=== PATIENT | male | born 1945 | race Caucasian/White ===

== ENCOUNTER 2016-11-01 16:11 | Emergency (ER) | payer OTHER ==
--- NOTE | 2016-11-01 16:16 | ER Document Report ---
ED Medical Screen (RME) - General Stated Complaint: LEFT FLANK/LOWER BACK PAIN Mode of Arrival: Ambulatory Information source: Patient Notes: She presents to the emergency department with right sided flank pain that started 2:00 this morning. Reports trouble voiding, feels constipated. Vomited multiple times after taking tylenol . History of kidney stones. I have greeted and performed a rapid initial assessment of this patient. A comprehensive ED assessment and evaluation of the patient, analysis of test results and completion of the medical decision making process will be conducted by additional ED providers. TRAVEL OUTSIDE OF THE [place] IN LAST 30 DAYS: No - Related Data Allergies/Adverse Reactions: No Known Allergies Allergy (Verified 08/29/15 07:12) Past Medical History GI Medical History: Reports: Hx Crohn's Disease Psychiatric Medical History: Denies: Hx Depression Past Surgical History: Reports: Hx Bowel Surgery - Perf. Bowel - Immunizations Hx Diphtheria, Pertussis, Tetanus Vaccination: Yes
[2016-11-01] MEDS ORDERED: OXYCODONE-ACETAMINOPHEN 5-325 MG TABLET PO ONE (16:57)
[2016-11-01] MEDS ORDERED: ONDANSETRON 4 MG TAB.RAPDIS PO ONE (16:57)
[2016-11-01] MEDS ORDERED: IBUPROFEN 600 MG TABLET PO ONE (16:57)
[2016-11-01] MEDS ORDERED: ONDANSETRON HCL INJ/PF 4 MG/2 ML SDV IV ONE (17:03)
[2016-11-01] MEDS ORDERED: KETOROLAC TROMETHAMINE INJ/PF 30 MG/1 ML SDV IV ONE (17:03)
[2016-11-01] MEDS ORDERED: MORPHINE SULFATE 10 MG/ML INJ IV ONE (17:03)
[2016-11-01 17:04] LABS: HEMATOCRIT 49.3 % (37.9-51.0); HEMOGLOBIN 16.5 g/dL (13.5-17.0); HGB HCT DIFFERENCE 0.2; MEAN CORPUSCULAR HGB CONC 33.5 g/dL (32.0-36.0); MEAN CORPUSCULAR VOLUME 87 fl (80-97); RED BLOOD COUNT 5.69 10^6/uL (4.35-5.55); RED CELL DISTRIBUTION WIDTH 13.6 % (11.5-14.0); WHITE BLOOD COUNT 17.3 10^3/uL (4.0-10.5)
--- NOTE | 2016-11-01 17:16 | ER Document Report ---
ED GI/ - General Chief Complaint: Flank Pain Stated Complaint: LEFT FLANK/LOWER BACK PAIN Mode of Arrival: Ambulatory Notes: The patient is a 71-year-old male, past medical history frequent kidney stones, presents with 10 hours of left flank pain radiating to his groin, exactly similar to his prior kidney stones. He said usually his stones pass in about 6 hours, but this is taking longer than normal. He has never required any urologic intervention. He is also having some nausea and vomiting. He denies hematuria, dysuria, diarrhea, constipation, hematemesis, chest pain, shortness of breath, numbness or tingling. TRAVEL OUTSIDE OF THE [place] IN LAST 30 DAYS: No - Related Data Allergies/Adverse Reactions: typhoid vaccine Allergy (Verified 11/01/16 16:19) Past Medical History - General Information source: Patient - Social History Smoking Status: Current Every Day Smoker Chew tobacco use (# tins/day): No Frequency of alcohol use: None Drug Abuse: None Family History: Other - Father, Grand father- Cerebral Aneurysm Patient has suicidal ideation: No Patient has homicidal ideation: No Renal/ Medical History: Denies: Hx Peritoneal Dialysis GI Medical History: Reports: Hx Crohn's Disease Psychiatric Medical History: Denies: Hx Depression Past Surgical History: Reports: Hx Bowel Surgery - Perf. Bowel - Immunizations Hx Diphtheria, Pertussis, Tetanus Vaccination: Yes Review of Systems - Review of Systems Notes: REVIEW OF SYSTEMS: CONSTITUTIONAL: -fevers, -chills EENT: -eye pain, -difficulty swallowing, -nasal congestion CARDIOVASCULAR: -chest pain, -syncope. RESPIRATORY: -cough, -SOB GASTROINTESTINAL: +abdominal pain, +nausea, +vomiting, -diarrhea GENITOURINARY: -dysuria, -hematuria MUSCULOSKELETAL: +left flank pain, -neck pain SKIN: -rash or skin lesions. HEMATOLOGIC: -easy bruising or bleeding. LYMPHATIC: -swollen, enlarged glands. NEUROLOGICAL: -altered mental status or loss of consciousness, -headache, - neurologic symptoms PSYCHIATRIC: -anxiety, -depression. ALL OTHER SYSTEMS REVIEWED AND NEGATIVE. Physical Exam - Vital signs Vitals: Temp Pulse Resp BP Pulse Ox 98.0 F 102 H 19 136/101 H 97 11/01/16 16:15 11/01/16 16:15 11/01/16 16:15 11/01/16 16:15 11/01/16 16:15 - Notes Notes: PHYSICAL EXAMINATION: GENERAL: Well-appearing, well-nourished and in mild acute distress. HEAD: Atraumatic, normocephalic. EYES: Pupils equal round and reactive to light, extraocular movements intact, sclera anicteric, conjunctiva are normal. ENT: nares patent, oropharynx clear without exudates. Moist mucous membranes. NECK: Normal range of motion, supple without lymphadenopathy LUNGS: Breath sounds clear to auscultation bilaterally and equal. No wheezes rales or rhonchi. HEART: Regular rate and rhythm without murmurs ABDOMEN: Soft, nontender, normoactive bowel sounds. No guarding, no rebound. No masses appreciated. EXTREMITIES: Normal range of motion, no pitting or edema. No cyanosis. NEUROLOGICAL: Cranial nerves grossly intact. Normal speech, normal gait. Normal sensory, motor, and reflex exams. PSYCH: Normal mood, normal affect. SKIN: Warm, Dry, normal turgor, no rashes or lesions noted. Course - Re-evaluation Re-evalutation: Patient feeling much better. CT scan shows evidence of a recently passed stone with moderate hydronephrosis. 3 mm stone in bladder. Patient with leukocytosis , but no evidence of urinary tract infection and abdomen is completely nontender. He says that he has had leukocytosis in the past without an infection. Patient is tolerating fluids by mouth. We will discharge home with follow-up at urologist as an outpatient. Instructed patient to drink plenty of water earlier next few days to help with his slight MANNIE. - Vital Signs Vital signs: Temp Pulse Resp BP Pulse Ox 98.0 F 102 H 19 136/101 H 97 11/01/16 16:15 11/01/16 16:15 11/01/16 16:15 11/01/16 16:15 11/01/16 16:15 - Laboratory Result Diagrams: 11/01/16 16:35 11/01/16 16:35 Laboratory results interpreted by me: 11/01/16 11/01/16 11/01/16 16:35 16:35 16:35 WBC 17.3 H RBC 5.69 H Seg Neuts % (Manual) 84 H Lymphocytes % (Manual) 5 L Abs Neuts (Manual) 14.5 H Abs Monocytes (Manual) 1.7 H BUN 21 H Creatinine 1.56 H Est GFR ( Amer) 54 L Est GFR (Non-Af Amer) 44 L Glucose 114 H Urine Ketones TRACE H Discharge - Discharge Clinical Impression: Calculus of left kidney Condition: Good Disposition: HOME, SELF-CARE Additional Instructions: KIDNEY STONE: You are passing or have passed a kidney stone. These stones are usually due to increased calcium or uric acid concentrations in your urine. Stones within the kidney itself are not painful. The pain occurs as the stone leaves the kidney to pass down the long tube, called the ureter, leading to the bladder. If the stone is small, it will usually pass by itself. Most patients can pass the stone at home. You will usually receive medications for pain, nausea or vomiting, and sometimes a medication to assist in passing the kidney stone. However, if the pain is very severe or if vomiting prevents you from taking oral pain medications, you may need to return for further treatment. Drink three or four quarts of fluids per day. You will be given pain medication (if needed) and urine strainers. Strain all your urine to see if the stone passes. If your doctor has asked you to bring the stone in for analysis, return with the stone once it has passed. Return if pain or vomiting become severe, if you develop a high fever, if you are unable to pass your urine, or if other unusual symptoms occur. TORADOL INJECTION: You have been given an injection of ketorolac tromethamine (Toradol). This is an excellent, safe drug for pain control. It also has potent antiinflammatory action. You should have significant pain relief within about one hour. Toradol is not addicting and is non-sedating. It does not interfere with driving or work. Call or return if you develop itching, hives, shortness of breath, or rash. PAIN MEDICATION INJECTION: You have received an injection of a pain medication. You should experience significant pain relief within 45 minutes. This drug is a narcotic - - it will impair your judgement, slow your reaction time and make you sleepy ( as well as relieve your pain). Narcotics also can cause nausea. You should not drive, work with machinery, or perform any task requiring mental alertness until all effects of the medication are gone -- six to eight hours. Do not take any alcohol, or sedatives, and do not take any other medication without checking with your physician. ANTINAUSEA MEDICATION: You have been given a medication to suppress nausea and vomiting. This type of medication can be given as a shot, pill, or suppository. It will usually last for many hours. Pills and shots usually last six to eight hours, suppositories last about 12 hours. For the typical illness, only one or two doses of the medication may be necessary. Mild lightheadedness may occur. This type of medicine can cause drowsiness. Do not drive or operate dangerous machinery while under its influence. Do not mix with alcohol. See your doctor at once if you have muscle spasms or tightness, or uncontrollable motions (particularly of the neck, mouth, or jaw). Persistent vomiting or severe lightheadedness should also be evaluated by the physician. FOLLOW-UP CARE: If you have been referred to a physician for follow-up care, call the physician s office for an appointment as you were instructed or within the next two days. If you experience worsening or a significant change in your symptoms, notify the physician immediately or return to the Emergency Department at any time for re-evaluation. Referrals: NAKIA ACE MD [SYBIL SCHAEFER] - Follow up as needed
[2016-11-01 17:19] LABS: ALANINE AMINOTRANSFERASE 22 U/L (21-72); ALBUMIN 4.2 g/dL (3.5-5.0); ALKALINE PHOSPHATASE 88 U/L (38-126); ANION GAP 14 (5-19); ASPARTATE AMINO TRANSFERASE 18 U/L (17-59); BILIRUBIN,TOTAL 0.9 mg/dL (0.2-1.3); BLOOD UREA NITROGEN 21 mg/dL (7-20); CARBON DIOXIDE 24 mmol/L (22-30); CHLORIDE 103 mmol/L (98-107); CREATININE RESULT 1.56 mg/dL (0.52-1.25); GLUCOSE 114 mg/dL (75-110); POTASSIUM 4.2 mmol/L (3.6-5.0); SODIUM 140.6 mmol/L (137-145); TOTAL PROTEIN 6.9 g/dL (6.3-8.2)
[2016-11-01 17:25] LABS: APPEARANCE,URINE CLEAR; BILIRUBIN,URINE NEGATIVE (NEGATIVE); GLUCOSE, URINE NEGATIVE (NEGATIVE); KETONES,URINE TRACE mg/dL (NEGATIVE); LEUKOCYTE ESTERASE,URINE NEGATIVE (NEGATIVE); NITRITE,URINE NEGATIVE (NEGATIVE); PROTEIN,URINE NEGATIVE (NEGATIVE); URINE SPECIFIC GRAVITY 1.028; UROBILINOGEN,URINE NEGATIVE mg/dL (<2.0)
[2016-11-01] MEDS ORDERED: NORMAL SALINE 1000 ML 1,000 ML IV ONE (17:35)
[2016-11-01 17:37] LABS: BASOPHILS % (MANUAL) 0 % (0-2); EOSINOPHILS % (MANUAL) 1 % (0-6); LYMPHOCYTES % (MANUAL) 5 % (13-45); TOTAL CELLS COUNTED 100
[2016-11-01 17:38] LABS: TOXIC GRANULATION SLIGHT
[2016-11-01 19:29] VITALS: BP 135/100
== END 2016-11-01 19:29 | disposition home or self-care (01) ==
LOC: ER 16:11
DX: N20.0 Calculus of kidney (principal); R10.9 Unspecified abdominal pain; M54.5 Low back pain; F17.210 Nicotine dependence, cigarettes, uncomplicated
CPT/HCPCS: 99284; 96361; 96374; 96375; 36415; 85025; 80053; 81001; 74176; J1885; J2270; J2405; J7030

== ENCOUNTER 2016-11-02 13:29 | Emergency (ER) | payer OTHER ==
--- NOTE | 2016-11-02 13:38 | ER Document Report ---
ED Medical Screen (RME) - General Stated Complaint: FLANK PAIN Notes: 8-year-old gentleman presented to the emergency room yesterday passing a kidney stone still has pain and was not provided any discharge medications. TRAVEL OUTSIDE OF THE [place] IN LAST 30 DAYS: No - Related Data Allergies/Adverse Reactions: typhoid vaccine Allergy (Verified 11/01/16 16:19) Past Medical History Renal/ Medical History: Denies: Hx Peritoneal Dialysis GI Medical History: Reports: Hx Crohn's Disease Psychiatric Medical History: Denies: Hx Depression Past Surgical History: Reports: Hx Bowel Surgery - Perf. Bowel - Immunizations Hx Diphtheria, Pertussis, Tetanus Vaccination: Yes Physical Exam - Vital signs Vitals: Temp Pulse Resp BP Pulse Ox 97.7 F 92 20 112/87 H 97 11/02/16 13:35 11/02/16 13:35 11/02/16 13:35 11/02/16 13:35 11/02/16 13:35 Course - Vital Signs Vital signs: Temp Pulse Resp BP Pulse Ox 97.7 F 92 20 112/87 H 97 11/02/16 13:35 11/02/16 13:35 11/02/16 13:35 11/02/16 13:35 11/02/16 13:35
[2016-11-02] MEDS ORDERED: NORMAL SALINE 1000 ML 1,000 ML IV PRN (14:24)
[2016-11-02 14:31] LABS: ABSOLUTE EOSINOPHILS # (AUTO) 0.1 10^3/uL (0.0-0.6); ABSOLUTE MONOCYTES (AUTO) 1.3 10^3/uL (0.1-1.4); BASOPHILS % (AUTO) 0.1 % (0-2); HEMATOCRIT 47.2 % (37.9-51.0); HEMOGLOBIN 15.5 g/dL (13.5-17.0); HGB HCT DIFFERENCE -0.7; LYMPHOCYTES % (AUTO) 7.8 % (13-45); MEAN CORPUSCULAR HEMOGLOBIN 29.2 pg (27.0-33.4); MEAN CORPUSCULAR HGB CONC 32.8 g/dL (32.0-36.0); MEAN CORPUSCULAR VOLUME 89 fl (80-97); MONOCYTES % (AUTO) 9.8 % (3-13); RED CELL DISTRIBUTION WIDTH 13.8 % (11.5-14.0); SEGMENTED NEUTROPHILS % (AUTO) 81.3 % (42-78); WHITE BLOOD COUNT 13.5 10^3/uL (4.0-10.5)
--- NOTE | 2016-11-02 14:31 | ER Document Report ---
ED General - General Chief Complaint: Flank Pain Stated Complaint: FLANK PAIN Time seen by provider: 14:30 Mode of Arrival: Ambulatory Information source: Patient Notes: 71-year-old man with a history of arthritis, kidney stone to presents with left flank pain. Patient was evaluated yesterday and CT reported passed kidney stone. Patient presents with continued left flank pain. He denies fever. TRAVEL OUTSIDE OF THE [place] IN LAST 30 DAYS: No - HPI Onset: Other - 2 days ago Onset/Duration: Gradual Quality of pain: Dull Severity: Moderate Pain Level: 2 Associated symptoms: Nausea. denies: Chills, Fever, Vomiting Exacerbated by: Denies Relieved by: Denies Similar symptoms previously: Yes Recently seen / treated by doctor: Yes - Related Data Allergies/Adverse Reactions: typhoid vaccine Allergy (Verified 11/02/16 13:38) Past Medical History - General Information source: Patient - Social History Smoking Status: Unknown if Ever Smoked Cigarette use (# per day): No Chew tobacco use (# tins/day): No Frequency of alcohol use: None Drug Abuse: None Lives with: Alone Family History: Other - Father, Grand father- Cerebral Aneurysm Patient has suicidal ideation: No Patient has homicidal ideation: No - Past Medical History Cardiac Medical History: Reports: None Pulmonary Medical History: Reports: None Neurological Medical History: Reports: None Endocrine Medical History: Reports: None Renal/ Medical History: Reports: Hx Kidney Stones. Denies: Hx Peritoneal Dialysis Malignancy Medical History: Reports None GI Medical History: Reports: Hx Crohn's Disease Musculoskeltal Medical History: Reports Hx Arthritis Skin Medical History: Reports None Psychiatric Medical History: Reports: None Denies: Hx Depression Traumatic Medical History: Reports: Hx Fractures Infectious Medical History: Reports: None Past Surgical History: Reports: Hx Bowel Surgery - Perf. Bowel - Immunizations Hx Diphtheria, Pertussis, Tetanus Vaccination: Yes Review of Systems - Review of Systems Constitutional: denies: Chills, Fever EENT: No symptoms reported Cardiovascular: No symptoms reported Respiratory: No symptoms reported Gastrointestinal: See HPI Genitourinary: No symptoms reported Male Genitourinary: No symptoms reported Musculoskeletal: No symptoms reported Skin: No symptoms reported Hematologic/Lymphatic: No symptoms reported Neurological/Psychological: No symptoms reported Physical Exam - Vital signs Vitals: Temp Pulse Resp BP Pulse Ox 97.7 F 92 20 112/87 H 97 11/02/16 13:35 11/02/16 13:35 11/02/16 13:35 11/02/16 13:35 11/02/16 13:35 Notes: Physical exam: GENERAL: 71-year-old man, alert and oriented 3, no acute distress. HEAD: Atraumatic, normocephalic. EYES: Pupils equal round and reactive to light, extraocular movements intact, sclera anicteric, conjunctiva are normal. ENT: TMs normal, nares patent, oropharynx clear without exudates. Moist mucous membranes. NECK: Normal range of motion, supple without lymphadenopathy or JVD. LUNGS: Breath sounds clear to auscultation bilaterally and equal. No wheezes rales or rhonchi. HEART: Regular rate and rhythm without murmurs, rubs or gallops. ABDOMEN: Soft, left CVA tenderness without rebound or guarding, normoactive bowel sounds. No masses appreciated. EXTREMITIES: Normal range of motion, no pitting or edema. No clubbing or cyanosis. NEUROLOGICAL: Cranial nerves II through XII grossly intact. Normal speech, normal gait. PSYCH: Normal mood, normal affect. SKIN: Warm, Dry, normal turgor, no rashes or lesions noted. Bedside ultrasound: Moderate hydronephrosis. Course - Re-evaluation Re-evalutation: 11/02/16 18:[address] Hurd (covering for urology) regarding the 3 mm stone in the setting of renal insufficiency. He still felt that the stone would pass easily with time and that the follow-up would include pain medicine, and seeing Dr. Smith in the office. I've discussed this plan with the patient was feeling much better at this time and he agrees with this follow-up. Additionally, he does want to follow-up with his doctors at the [facility]. I have made copies of all of today's labs as well as copies of the CT report for him to take home with him. I have discussed with him the issue of his renal insufficiency and I've advised him not to take any ibuprofen/Aleve/Motrin. 11/02/16 20:03 - Vital Signs Vital signs: Temp Pulse Resp BP Pulse Ox 97.7 F 97 18 131/90 H 97 11/02/16 18:11 11/02/16 18:11 11/02/16 18:11 11/02/16 18:11 11/02/16 18:11 - Laboratory Result Diagrams: 11/02/16 13:40 11/02/16 13:40 Laboratory results interpreted by me: 11/02/16 11/02/16 11/02/16 13:40 13:40 13:45 WBC 13.5 H Seg Neutrophils % 81.3 H Lymphocytes % 7.8 L Absolute Neutrophils 11.0 H BUN 23 H Creatinine 1.88 H Est GFR ( Amer) 43 L Est GFR (Non-Af Amer) 36 L AST 14 L Total Protein 6.0 L Albumin 3.4 L Urine Blood MODERATE H Urine Urobilinogen 2.0 H - Diagnostic Test Radiology reviewed: Image reviewed, Reports reviewed - 3 mm stone at the left UVJ Discharge - Discharge Clinical Impression: kidney stone Condition: Stable Disposition: HOME, SELF-CARE Additional Instructions: Recommendations: Rest, drink plenty of fluids, take Zofran for nausea. Take the hydrocodone for pain. Do not take Motrin or ibuprofen or Naprosyn or Aleve: Your kidney function tests were elevated today. I recommend you do not take aspirin at this time. [facility]: Bring a copy of today's labs with you when [facility]. Bring a copy of today's CT scans with you when [facility]. Additionally, take the Flomax daily for 1 week. I've given a number for urologist few to follow-up with that is affiliated with the hospital: Dr. Smith Return to the emergency room for worsening pain, fever, any concerns he getting worse. Prescriptions: Hydrocodone/Acetaminophen [Edmond 5-325 mg Tablet] 1 tab PO Q6HP PRN #25 tablet PRN Reason: Tamsulosin HCl [Flomax 0.4 mg Cap.sr] 0.4 mg PO DAILY #7 cap.sr.24h Referrals: TRIXIE SMITH MD [ACTIVE STAFF] - 11/05/16
[2016-11-02] MEDS ORDERED: KETOROLAC TROMETHAMINE INJ/PF 30 MG/1 ML SDV IV ONE (14:32)
[2016-11-02] MEDS ORDERED: TAMSULOSIN HCL 0.4 MG CAP.SR.24H PO ONE (14:32)
[2016-11-02 14:33] LABS: APPEARANCE,URINE SLIGHTLY-CLOUDY; BILIRUBIN,URINE NEGATIVE (NEGATIVE); CALCIUM OXALATE CRYSTALS,URINE FEW /HPF; GLUCOSE, URINE NEGATIVE (NEGATIVE); KETONES,URINE NEGATIVE (NEGATIVE); LEUKOCYTE ESTERASE,URINE NEGATIVE (NEGATIVE); NITRITE,URINE NEGATIVE (NEGATIVE); PROTEIN,URINE NEGATIVE (NEGATIVE); URINE SPECIFIC GRAVITY 1.024
[2016-11-02 14:47] LABS: ALANINE AMINOTRANSFERASE 22 U/L (21-72); ALBUMIN 3.4 g/dL (3.5-5.0); ALKALINE PHOSPHATASE 77 U/L (38-126); ANION GAP 10 (5-19); ASPARTATE AMINO TRANSFERASE 14 U/L (17-59); BILIRUBIN,TOTAL 0.5 mg/dL (0.2-1.3); BLOOD UREA NITROGEN 23 mg/dL (7-20); CALCIUM 9.1 mg/dL (8.4-10.2); CARBON DIOXIDE 26 mmol/L (22-30); CHLORIDE 106 mmol/L (98-107); CREATININE RESULT 1.88 mg/dL (0.52-1.25); GLUCOSE 77 mg/dL (75-110); POTASSIUM 4.1 mmol/L (3.6-5.0); SODIUM 142.4 mmol/L (137-145)
[2016-11-02 18:13] VITALS: BP 131/90
[2016-11-02] MEDS ORDERED: HYDROCODONE/ACETAMINOPHEN 5-325 MG 6 TAB/DSPK PO PRN (18:17)
[2016-11-02] MEDS ORDERED: ONDANSETRON ODT 4 MG TAB (6 TAB/DSPK) PO PRN (18:18)
== END 2016-11-02 18:39 | disposition home or self-care (01) ==
LOC: ER 13:29
DX: N20.0 Calculus of kidney (principal); R10.9 Unspecified abdominal pain; R11.0 Nausea; Z87.442 Personal history of urinary calculi
CPT/HCPCS: 99284; 96361; 96374; 36415; 85025; 80053; 81001; 76380; J1885; J7030

== ENCOUNTER 2016-11-04 14:10 | Emergency (ER) | payer OTHER ==
--- NOTE | 2016-11-04 14:49 | ER Document Report ---
ED Medical Screen (RME) - General Stated Complaint: FLANK PAIN Notes: left flank pain with radiation to left groin was diagnosed with left UVJ 3mm stone on 11/02 taking norco for pain no hematuria TRAVEL OUTSIDE OF THE [place] IN LAST 30 DAYS: No - Related Data Allergies/Adverse Reactions: typhoid vaccine Allergy (Verified 11/04/16 14:49) Past Medical History Renal/ Medical History: Reports: Hx Kidney Stones. Denies: Hx Peritoneal Dialysis GI Medical History: Reports: Hx Crohn's Disease Musculoskeltal Medical History: Reports Hx Arthritis Psychiatric Medical History: Denies: Hx Depression Traumatic Medical History: Reports: Hx Fractures Past Surgical History: Reports: Hx Bowel Surgery - Perf. Bowel - Immunizations Hx Diphtheria, Pertussis, Tetanus Vaccination: Yes Physical Exam - Vital signs Vitals: Temp Pulse Resp BP Pulse Ox 98.0 F 93 24 H 141/95 H 97 11/04/16 14:48 11/04/16 14:48 11/04/16 14:48 11/04/16 14:48 11/04/16 14:48 Course - Vital Signs Vital signs: Temp Pulse Resp BP Pulse Ox 98.0 F 93 24 H 141/95 H 97 11/04/16 14:48 11/04/16 14:48 11/04/16 14:48 11/04/16 14:48 11/04/16 14:48
[2016-11-04] MEDS ORDERED: HYDROCODONE/ACETAMINOPHEN 5-325 MG TABLET PO ONE (14:52)
[2016-11-04 15:52] LABS: APPEARANCE,URINE CLEAR; BILIRUBIN,URINE NEGATIVE (NEGATIVE); GLUCOSE, URINE NEGATIVE (NEGATIVE); KETONES,URINE NEGATIVE (NEGATIVE); LEUKOCYTE ESTERASE,URINE NEGATIVE (NEGATIVE); NITRITE,URINE NEGATIVE (NEGATIVE); PROTEIN,URINE NEGATIVE (NEGATIVE); URINE SPECIFIC GRAVITY 1.014
[2016-11-04 15:54] LABS: HEMOGLOBIN 15.4 g/dL (13.5-17.0); HGB HCT DIFFERENCE 0.2; MEAN CORPUSCULAR HEMOGLOBIN 29.4 pg (27.0-33.4); MEAN CORPUSCULAR HGB CONC 33.5 g/dL (32.0-36.0); MEAN CORPUSCULAR VOLUME 88 fl (80-97); RED BLOOD COUNT 5.23 10^6/uL (4.35-5.55); RED CELL DISTRIBUTION WIDTH 13.4 % (11.5-14.0); WHITE BLOOD COUNT 12.1 10^3/uL (4.0-10.5)
[2016-11-04 16:08] LABS: ALANINE AMINOTRANSFERASE 21 U/L (21-72); ALBUMIN 3.5 g/dL (3.5-5.0); ALKALINE PHOSPHATASE 83 U/L (38-126); ANION GAP 10 (5-19); ASPARTATE AMINO TRANSFERASE 9 U/L (17-59); BASOPHILS % (MANUAL) 0 % (0-2); BILIRUBIN,TOTAL 0.7 mg/dL (0.2-1.3); BLOOD UREA NITROGEN 18 mg/dL (7-20); CALCIUM 9.4 mg/dL (8.4-10.2); CARBON DIOXIDE 28 mmol/L (22-30); CHLORIDE 102 mmol/L (98-107); CREATININE RESULT 1.83 mg/dL (0.52-1.25); EOSINOPHILS % (MANUAL) 1 % (0-6); GLUCOSE 80 mg/dL (75-110); LYMPHOCYTES % (MANUAL) 6 % (13-45); POTASSIUM 4.9 mmol/L (3.6-5.0); SODIUM 140.4 mmol/L (137-145); TOTAL CELLS COUNTED 100; TOTAL PROTEIN 6.3 g/dL (6.3-8.2)
[2016-11-04 16:09] LABS: RBC MORPHOLOGY COMMENT NORMO-CYTIC/CHROMIC
--- NOTE | 2016-11-04 17:29 | ER Document Report ---
ED GI/ - General Chief Complaint: Possible Kidney Stone Stated Complaint: FLANK PAIN Mode of Arrival: Ambulatory Information source: Patient Notes: Patient complains of recent kidney stone pain. Patient states that due to the holiday he has not been able to follow-up with a urologist yet. Patient complains of continued left flank pain. Patient denies any fever or urinary symptoms. Patient denies any nausea or vomiting. He shouldn't states that he has been taking his pain medication but has continued to have left flank pain and is concerned that he hasn't passed his kidney stone yet. TRAVEL OUTSIDE OF THE [place] IN LAST 30 DAYS: No - HPI Patient complains to provider of: Flank pain. No: Testicular pain, Vomiting Onset: Other - 4 days Timing/Duration: Persistent Quality of pain: Sharp Pain Level: 4 Location: Left flank Associated symptoms: denies: Dysuria, Fever, Nausea, Urinary hesitancy, Urinary frequency, Urinary retention, Urinary urgency, Vomiting Exacerbated by: Denies Relieved by: Denies Similar symptoms previously: Yes Recently seen / treated by doctor: Yes - Related Data Allergies/Adverse Reactions: typhoid vaccine Allergy (Verified 11/04/16 14:49) Past Medical History - General Information source: Patient - Social History Smoking Status: Current Every Day Smoker Chew tobacco use (# tins/day): No Frequency of alcohol use: None Drug Abuse: None Occupation: none Lives with: Alone Family History: Reviewed & Not Pertinent, Other - Father, Grand father- Cerebral Aneurysm Patient has suicidal ideation: No Patient has homicidal ideation: No Renal/ Medical History: Reports: Hx Kidney Stones. Denies: Hx Peritoneal Dialysis GI Medical History: Reports: Hx Crohn's Disease Musculoskeltal Medical History: Reports Hx Arthritis Psychiatric Medical History: Denies: Hx Depression Traumatic Medical History: Reports: Hx Fractures Past Surgical History: Reports: Hx Bowel Surgery - Perf. Bowel - Immunizations Hx Diphtheria, Pertussis, Tetanus Vaccination: Yes Review of Systems - Review of Systems Constitutional: No symptoms reported. denies: Fever, Recent illness EENT: No symptoms reported Cardiovascular: No symptoms reported. denies: Chest pain Respiratory: No symptoms reported. denies: Cough, Short of breath Gastrointestinal: Abdominal pain - Mild left lower quadrant. denies: Diarrhea, Nausea, Vomiting Genitourinary: Flank pain. denies: Dysuria Male Genitourinary: No symptoms reported Musculoskeletal: Back pain Skin: No symptoms reported Hematologic/Lymphatic: No symptoms reported Neurological/Psychological: No symptoms reported Physical Exam - Vital signs Vitals: Temp Pulse Resp BP Pulse Ox 98.0 F 93 24 H 141/95 H 97 11/04/16 14:48 11/04/16 14:48 11/04/16 14:48 11/04/16 14:48 11/04/16 14:48 - General General appearance: Appears well, Alert In distress: None Notes: PHYSICAL EXAMINATION: GENERAL: Well-appearing and in no acute distress. HEAD: Atraumatic, normocephalic. EYES: sclera anicteric, conjunctiva are normal. ENT: nares patent. Moist mucous membranes. NECK: Normal range of motion, supple without lymphadenopathy LUNGS: CTAB and equal. No wheezes rales or rhonchi. HEART: Regular rate and rhythm without murmurs ABDOMEN: Soft, mild left lower quadrant tenderness, normal bowel sounds, no guarding. EXTREMITIES: Normal range of motion, no pitting edema. No cyanosis. BACK: Left lower lumbar tenderness, no CVA tenderness NEUROLOGICAL: Cranial nerves grossly intact. Normal speech. Normal gait. PSYCH: Normal mood, normal affect. SKIN: Warm, Dry, normal turgor, no rashes or lesions noted Course - Re-evaluation Re-evalutation: 11/04/16 18:20 Patient states that he was only able to fill 14 tablets of his prescription due to lack of money. Patient states that pharmacy states that his remaining prescription is now void as they cannot give him the rest of his prescription if he did not get it all filled at the same time. I called and spoke with the pharmacy staff at [facility] who confirmed that patient did only pickup 14 tablets and that he was correct in stating that his remaining prescription is now void. Consulted with Dr. Boyer regarding patient presentation. Agrees with plan for discharge. Recommends outpatient follow-up with urology. Reviewed patient's diagnostic test results over the past 3 ER visits. - Vital Signs Vital signs: Temp Pulse Resp BP Pulse Ox 98.0 F 85 16 138/92 H 98 11/04/16 14:48 11/04/16 18:47 11/04/16 18:47 11/04/16 18:47 11/04/16 18:47 - Laboratory Result Diagrams: 11/04/16 15:30 11/04/16 15:30 Laboratory results interpreted by me: 11/04/16 11/04/16 11/04/16 15:30 15:30 15:30 WBC 12.1 H Seg Neuts % (Manual) 84 H Lymphocytes % (Manual) 6 L Abs Neuts (Manual) 10.2 H Creatinine 1.83 H Est GFR ( Amer) 45 L Est GFR (Non-Af Amer) 37 L AST 9 L Urine Blood SMALL H Urine Urobilinogen 2.0 H 11/04/16 18:22 Labs- Entire Visit 11/04/16 11/04/16 11/04/16 15:30 15:30 15:30 WBC 12.1 H RBC 5.23 Hgb 15.4 Hct 46.0 MCV 88 MCH 29.4 MCHC 33.5 RDW 13.4 Plt Count 188 Total Counted 100 Seg Neutrophils % Not Reportable Seg Neuts % (Manual) 84 H Lymphocytes % Not Reportable Lymphocytes % (Manual) 6 L Atypical Lymphs % 1 Monocytes % Not Reportable Monocytes % (Manual) 8 Eosinophils % Not Reportable Eosinophils % (Manual) 1 Basophils % Not Reportable Basophils % (Manual) 0 Absolute Neutrophils Not Reportable Abs Neuts (Manual) 10.2 H Absolute Lymphocytes Not Reportable Abs Lymphs (Manual) 0.8 Absolute Monocytes Not Reportable Abs Monocytes (Manual) 1.0 Absolute Eosinophils Not Reportable Absolute Eos (Manual) 0.1 Absolute Basophils Not Reportable Abs Basophils (Manual) 0.0 Platelet Comment ADEQUATE RBC Morph Comment NORMO-CYTIC/CHROMIC Sodium 140.4 Potassium 4.9 Chloride 102 Carbon Dioxide 28 Anion Gap 10 BUN 18 Creatinine 1.83 H Est GFR ( Amer) 45 L Est GFR (Non-Af Amer) 37 L Glucose 80 Calcium 9.4 Total Bilirubin 0.7 Direct Bilirubin 0.0 AST 9 L ALT 21 Alkaline Phosphatase 83 Total Protein 6.3 Albumin 3.5 Urine Color YELLOW Urine Appearance CLEAR Urine pH 5.0 Ur Specific [place] 1.014 Urine Protein NEGATIVE Urine Glucose (UA) NEGATIVE Urine Ketones NEGATIVE Urine Blood SMALL H Urine Nitrite NEGATIVE Urine Bilirubin NEGATIVE Urine Urobilinogen 2.0 H Ur Leukocyte Esterase NEGATIVE Urine WBC (Auto) 1 Urine RBC (Auto) 0 Urine Mucus (Auto) RARE Urine Ascorbic Acid NEGATIVE 11/04/16 19:26 - Diagnostic Test Radiology reviewed: Reports reviewed - From previous ER visits Discharge - Discharge Clinical Impression: Kidney stone on left side, Flank pain Condition: Stable Disposition: HOME, SELF-CARE Additional Instructions: Return immediately for any new or worsening symptoms Followup with your primary care provider, call tomorrow to make a followup appointment Follow up with a urologist, call their office tomorrow. Let them know that your seen in the emergency department and need to be evaluated. Your blood pressure was mildly elevated today. He can recheck with your primary doctor to have this evaluated in 1-2 days. KIDNEY STONE: You are passing or have passed a kidney stone. These stones are usually due to increased calcium or uric acid concentrations in your urine. Stones within the kidney itself are not painful. The pain occurs as the stone leaves the kidney to pass down the long tube, called the ureter, leading to the bladder. If the stone is small, it will usually pass by itself. Most patients can pass the stone at home. You will usually receive medications for pain, nausea or vomiting, and sometimes a medication to assist in passing the kidney stone. However, if the pain is very severe or if vomiting prevents you from taking oral pain medications, you may need to return for further treatment. Drink three or four quarts of fluids per day. You will be given pain medication (if needed) and urine strainers. Strain all your urine to see if the stone passes. If your doctor has asked you to bring the stone in for analysis, return with the stone once it has passed. Return if pain or vomiting become severe, if you develop a high fever, if you are unable to pass your urine, or if other unusual symptoms occur. ORAL NARCOTIC MEDICATION: You have been given a prescription for pain control. This medication is a narcotic. It's best taken with food, as nausea can result if taken on an empty stomach. Don't operate machinery or drive within six hours of taking this medication. Do not combine this medicine with alcohol, or with any medication which can cause sedation (such as cold tablets or sleeping pills) unless you get permission from the physician. Narcotics tend to cause constipation. If possible, drink plenty of fluids and eat a diet high in fiber and fruits. Please be aware that prescription narcotics also have the potential for abuse. People become addicted to these medications because of the general sense of wellbeing that they induce. This feeling along with a significant reduction in tension, anxiety, and aggression provides a stimulating seductive quality to these drugs. Once your pain is under control, we encourage you to discard your unused narcotics. FOLLOW-UP CARE: If you have been referred to a physician for follow-up care, call the physician s office for an appointment as you were instructed or within the next two days. If you experience worsening or a significant change in your symptoms, notify the physician immediately or return to the Emergency Department at any time for re-evaluation. Prescriptions: Hydrocodone/Acetaminophen [[place] 5-325 Tablet] 1 each PO Q4 PRN #20 tablet PRN Reason: Referrals: ANGELY MOSS MD [NO LOCAL MD] - Follow up in 3-5 days [facility] [Provider Group] - Follow up tomorrow
[2016-11-04] MEDS ORDERED: HYDROCODONE/ACETAMINOPHEN 5-325 MG 6 TAB/DSPK PO PRN (18:18)
[2016-11-04 18:49] VITALS: BP 138/92
== END 2016-11-04 18:47 | disposition home or self-care (01) ==
LOC: ER 14:10
DX: N20.0 Calculus of kidney (principal); F17.200 Nicotine dependence, unspecified, uncomplicated; Z88.7 Allergy status to serum and vaccine; Z87.19 Personal history of other diseases of the digestive system
CPT/HCPCS: 36415; 80053; 81001; 85025; 99284

== ENCOUNTER 2016-11-25 09:10 | Emergency (ER) | payer OTHER ==
[2016-11-25 10:14] LABS: APPEARANCE,URINE CLEAR; BILIRUBIN,URINE NEGATIVE (NEGATIVE); GLUCOSE, URINE NEGATIVE (NEGATIVE); KETONES,URINE NEGATIVE (NEGATIVE); LEUKOCYTE ESTERASE,URINE NEGATIVE (NEGATIVE); NITRITE,URINE NEGATIVE (NEGATIVE); PROTEIN,URINE NEGATIVE (NEGATIVE); URINE SPECIFIC GRAVITY 1.005; UROBILINOGEN,URINE NEGATIVE mg/dL (<2.0)
[2016-11-25 10:15] LABS: ABSOLUTE BASOPHILS # (AUTO) 0.1 10^3/uL (0.0-0.2); ABSOLUTE EOSINOPHILS # (AUTO) 0.2 10^3/uL (0.0-0.6); ABSOLUTE LYMPHOCYTES (AUTO) 0.9 10^3/uL (0.5-4.7); ABSOLUTE MONOCYTES (AUTO) 0.6 10^3/uL (0.1-1.4); ABSOLUTE NEUT (AUTO) 7.6 10^3/uL (1.7-8.2); BASOPHILS % (AUTO) 0.9 % (0-2); EOSINOPHILS % (AUTO) 1.8 % (0-6); HEMATOCRIT 46.5 % (37.9-51.0); HEMOGLOBIN 15.9 g/dL (13.5-17.0); HGB HCT DIFFERENCE 1.2; LYMPHOCYTES % (AUTO) 9.1 % (13-45); MEAN CORPUSCULAR HEMOGLOBIN 29.6 pg (27.0-33.4); MEAN CORPUSCULAR HGB CONC 34.2 g/dL (32.0-36.0); MEAN CORPUSCULAR VOLUME 86 fl (80-97); MONOCYTES % (AUTO) 6.8 % (3-13); RED BLOOD COUNT 5.38 10^6/uL (4.35-5.55); RED CELL DISTRIBUTION WIDTH 13.5 % (11.5-14.0); SEGMENTED NEUTROPHILS % (AUTO) 81.4 % (42-78); WHITE BLOOD COUNT 9.4 10^3/uL (4.0-10.5)
--- NOTE | 2016-11-25 10:23 | ER Document Report ---
ED GI/ - General Mode of Arrival: Ambulatory Information source: Patient TRAVEL OUTSIDE OF THE [place] IN LAST 30 DAYS: No - HPI Patient complains to provider of: Flank pain - right. No: Hematuria Onset: This morning Location: Right flank Associated symptoms: Other - see above <GARRET HONYECUTT - Last Filed: 11/25/16 10:17> <SANDOVAL COLON - Last Filed: 11/25/16 12:35> - General Chief Complaint: Possible Kidney Stone Stated Complaint: FLANK PAIN Notes: 71 year old male with history of kidney stones and hypertension presents to the ED complaining of right flank pain that started this morning. Patient was seen at the [facility] and was told to go to the [facility] in order to get an ultrasound done. Patient states that his van wouldn't make it down to [place], so he came to the ED instead. Patient denies any hematuria or any other urinary symptoms. Patient states that he woke up 2 days ago with bilateral kidney pain. Pain on the left side has since diminished, but the right side is still present. Patient was last seen on 11/01/2016 for a left side kidney stone. Patient states that he has since passed that stone. (GARRET HONEYCUTT) - Related Data Allergies/Adverse Reactions: typhoid vaccine Allergy (Verified 11/25/16 09:21) Past Medical History - General Information source: Patient - Social History Smoking Status: Never Smoker Chew tobacco use (# tins/day): No Frequency of alcohol use: None Drug Abuse: None Family History: Reviewed & Not Pertinent, Other - Father, Grand father- Cerebral Aneurysm Patient has suicidal ideation: No Patient has homicidal ideation: No - Past Medical History Cardiac Medical History: Reports: Hx Hypertension Renal/ Medical History: Reports: Hx Kidney Stones. Denies: Hx Peritoneal Dialysis GI Medical History: Reports: Hx Crohn's Disease Musculoskeltal Medical History: Reports Hx Arthritis Traumatic Medical History: Reports: Hx Fractures Past Surgical History: Reports: Hx Bowel Surgery - Perf. Bowel - Immunizations Hx Diphtheria, Pertussis, Tetanus Vaccination: Yes <GARRET HONEYCUTT - Last Filed: 11/25/16 10:17> Review of Systems - Review of Systems Constitutional: See HPI, Recent illness - left kidney stone 11/01/2016 EENT: No symptoms reported Cardiovascular: No symptoms reported Respiratory: No symptoms reported Gastrointestinal: No symptoms reported Genitourinary: See HPI, Flank pain - right. denies: Hematuria Male Genitourinary: No symptoms reported Musculoskeletal: No symptoms reported Skin: No symptoms reported Hematologic/Lymphatic: No symptoms reported Neurological/Psychological: No symptoms reported -: Yes All other systems reviewed and negative <GARRET HONEYCUTT - Last Filed: 11/25/16 10:17> Physical Exam - Vital signs Interpretation: Normal - General General appearance: Alert In distress: None - HEENT Head: Normocephalic, Atraumatic Eyes: Normal Extraocular movements intact: Yes Pupils: PERRL - Respiratory Respiratory status: No respiratory distress Breath sounds: Normal - Cardiovascular Rhythm: Regular Heart sounds: Normal auscultation - Abdominal Inspection: Normal - Back Back: CVA tenderness - right. No: Normal - Extremities General upper extremity: Normal inspection, Normal ROM General lower extremity: Normal inspection, Normal ROM, Normal weight bearing - Neurological Neuro grossly intact: Yes - Psychological Associated symptoms: Normal affect, Normal mood - Skin Skin Temperature: Warm Skin Moisture: Dry Skin Color: Normal <GARRET HONEYCUTT - Last Filed: 11/25/16 10:17> <SANDOVAL COLON - Last Filed: 11/25/16 12:35> - Vital signs Vitals: Temp Pulse Resp BP Pulse Ox 97.6 F 98 16 133/107 H 97 11/25/16 09:16 11/25/16 09:16 11/25/16 09:16 11/25/16 09:16 11/25/16 09:16 (GARRET HONEYCUTT) (SANDOVAL COLON) Course - Laboratory Result Diagrams: 11/25/16 10:00 11/25/16 10:00 <GARRET HONEYCUTT - Last Filed: 11/25/16 10:17> - Laboratory Result Diagrams: 11/25/16 10:00 11/25/16 10:00 - Diagnostic Test Radiology reviewed: Reports reviewed - The ultrasound was read as no hydronephrosis either kidney. His chronic cyst noted on the right kidney. The occupational health technician did note a ureteral jet seen on the left side. <SANDOVAL COLON - Last Filed: 11/25/16 12:35> - Vital Signs Vital signs: Temp Pulse Resp BP Pulse Ox 97.6 F 98 16 133/107 H 97 11/25/16 09:16 11/25/16 09:16 11/25/16 09:16 11/25/16 09:16 11/25/16 09:16 (GARRET HONEYCUTT) (SANDOVAL COLON) - Laboratory Laboratory results interpreted by me: 11/25/16 10:00 Seg Neutrophils % 81.4 H Lymphocytes % 9.1 L (GARRET HONEYCUTT) (SANDOVAL COLON) Discharge <GARRET HONEYCUTT - Last Filed: 11/25/16 10:17> <SANDOVAL COLON - Last Filed: 11/25/16 12:35> - Discharge Clinical Impression: Right flank pain Condition: Stable Disposition: HOME, SELF-CARE Additional Instructions: Flank Pain: We weren't able to prove an exact cause for your flank pain. Pain in the flank can be caused by a muscle strain or spasm. Sometimes a kidney stone causes pain, but can't be found on our tests. Infection in the kidney should be evident on a urine test. Early shingles can occasionally cause flank pain, without the rash that proves the diagnosis. On rare occasions, disease of the pancreas, aorta, spleen, or colon can create pain in the flank. At this time, there's no evidence of a dangerous condition, and it seems safe for you to be at home. If the pain goes away and does not come back, no further testing will be needed. If pain persists, or becomes more severe, we may need to repeat some tests or order additional new testing. Blood in the urine, urgency to urinate frequently, and pain that radiates to the groin can indicate a kidney stone. Fever may mean that the pain is due to infection, either of the kidney or the colon (diverticulitis). If your pain is early shingles, you should develop an eruption of blisters in the painful area within a few days. Call the doctor or return if you have pain that is spreading or becoming more severe, pain that does not resolve with time, fever, or any other new symptoms. Your pain in the right flank is probably due to a nonobstructing kidney stone. The ultrasound did not show any hydroureter or hydronephrosis today. You should follow-up with your doctors at the [facility] for pain management and urology referral. Scribe Attestation: 11/25/16 12:34 I personally performed the services described in the documentation, reviewed and edited the documentation which was dictated to the scribe in my presence, and it accurately records my words and actions. (SANDOVAL COLON) Scribe Documentation - Scribe Written by Rhiannon:: Rhiannon Devine, 11/25/2016 1024 acting as scribe for :: Monico <GARRET HONEYCUTT - Last Filed: 11/25/16 10:17>
[2016-11-25 10:31] LABS: ALANINE AMINOTRANSFERASE 58 U/L (21-72); ALBUMIN 4.3 g/dL (3.5-5.0); ALKALINE PHOSPHATASE 81 U/L (38-126); ANION GAP 11 (5-19); ASPARTATE AMINO TRANSFERASE 27 U/L (17-59); BLOOD UREA NITROGEN 15 mg/dL (7-20); CALCIUM 9.7 mg/dL (8.4-10.2); CARBON DIOXIDE 28 mmol/L (22-30); CHLORIDE 105 mmol/L (98-107); CREATININE RESULT 1.12 mg/dL (0.52-1.25); GLUCOSE 110 mg/dL (75-110); SODIUM 143.6 mmol/L (137-145)
[2016-11-25 13:04] VITALS: BP 121/97
== END 2016-11-25 13:03 | disposition home or self-care (01) ==
LOC: ER 09:10
DX: R10.9 Unspecified abdominal pain (principal); I10 Essential (primary) hypertension
CPT/HCPCS: 36415; 76770; 80053; 81001; 83690; 85025; 99284

== ENCOUNTER 2017-05-20 14:28 | Emergency (ER) | payer OTHER ==
--- NOTE | 2017-05-20 14:50 | ER Document Report ---
ED Medical Screen (RME) - General Chief Complaint: Other Stated Complaint: POSSIBLE COCAINE ABUSE Time Seen by Provider: 05/20/17 14:47 Notes: Patient reports using crack for the last 3 years. He states he most recently used from 1 AM today to 1 PM today. He states he used $100 worth during that time. Patient denies any other chronic medical conditions. He denies using any other type of drugs or alcohol. He states he would like help with detoxing from cocaine. TRAVEL OUTSIDE OF THE [place] IN LAST 30 DAYS: No - Related Data Allergies/Adverse Reactions: typhoid vaccine Allergy (Verified 05/20/17 14:33) Past Medical History - Past Medical History Cardiac Medical History: Reports: Hx Hypertension Renal/ Medical History: Reports: Hx Kidney Stones. Denies: Hx Peritoneal Dialysis GI Medical History: Reports: Hx Crohn's Disease Musculoskeltal Medical History: Reports Hx Arthritis Traumatic Medical History: Reports: Hx Fractures Past Surgical History: Reports: Hx Bowel Surgery - Perf. Bowel - Immunizations Hx Diphtheria, Pertussis, Tetanus Vaccination: Yes Physical Exam - Vital signs Vitals: Temp Pulse Resp BP Pulse Ox 97.9 F 111 H 18 136/97 H 94 05/20/17 14:31 05/20/17 14:31 05/20/17 14:31 05/20/17 14:31 05/20/17 14:31 Course - Vital Signs Vital signs: Temp Pulse Resp BP Pulse Ox 97.9 F 111 H 18 136/97 H 94 05/20/17 14:31 05/20/17 14:31 05/20/17 14:31 05/20/17 14:31 05/20/17 14:31
[2017-05-20 15:33] LABS: APPEARANCE,URINE SLIGHTLY-CLOUDY; BILIRUBIN,URINE NEGATIVE (NEGATIVE); GLUCOSE, URINE NEGATIVE (NEGATIVE); KETONES,URINE TRACE mg/dL (NEGATIVE); LEUKOCYTE ESTERASE,URINE NEGATIVE (NEGATIVE); NITRITE,URINE NEGATIVE (NEGATIVE); PROTEIN,URINE NEGATIVE (NEGATIVE); URINE SPECIFIC GRAVITY 1.013
[2017-05-20 15:45] LABS: ABSOLUTE BASOPHILS # (AUTO) 0.1 10^3/uL (0.0-0.2); ABSOLUTE LYMPHOCYTES (AUTO) 0.9 10^3/uL (0.5-4.7); ABSOLUTE MONOCYTES (AUTO) 1.1 10^3/uL (0.1-1.4); ABSOLUTE NEUT (AUTO) 11.4 10^3/uL (1.7-8.2); BASOPHILS % (AUTO) 0.4 % (0-2); EOSINOPHILS % (AUTO) 0.2 % (0-6); HEMATOCRIT 45.9 % (37.9-51.0); HEMOGLOBIN 16.2 g/dL (13.5-17.0); HGB HCT DIFFERENCE 2.7; LYMPHOCYTES % (AUTO) 6.5 % (13-45); MEAN CORPUSCULAR HEMOGLOBIN 29.6 pg (27.0-33.4); MEAN CORPUSCULAR HGB CONC 35.3 g/dL (32.0-36.0); MEAN CORPUSCULAR VOLUME 84 fl (80-97); RED BLOOD COUNT 5.46 10^6/uL (4.35-5.55); RED CELL DISTRIBUTION WIDTH 13.4 % (11.5-14.0); SEGMENTED NEUTROPHILS % (AUTO) 84.9 % (42-78); WHITE BLOOD COUNT 13.4 10^3/uL (4.0-10.5)
[2017-05-20 15:54] LABS: ALANINE AMINOTRANSFERASE 22 U/L (21-72); ALBUMIN 4.7 g/dL (3.5-5.0); ALKALINE PHOSPHATASE 123 U/L (38-126); ANION GAP 16 (5-19); ASPARTATE AMINO TRANSFERASE 18 U/L (17-59); BILIRUBIN,DIRECT 0.4 mg/dL (0.0-0.4); BILIRUBIN,TOTAL 1.1 mg/dL (0.2-1.3); BLOOD UREA NITROGEN 14 mg/dL (7-20); CALCIUM 9.9 mg/dL (8.4-10.2); CARBON DIOXIDE 22 mmol/L (22-30); CHLORIDE 105 mmol/L (98-107); CREATININE RESULT 1.03 mg/dL (0.52-1.25); GLUCOSE 106 mg/dL (75-110); POTASSIUM 4.1 mmol/L (3.6-5.0); SODIUM 142.6 mmol/L (137-145); TOTAL PROTEIN 8.3 g/dL (6.3-8.2)
[2017-05-20 15:55] LABS: ALCOHOL < 10 mg/dL (NONE DETECTED)
[2017-05-20 15:55] LABS: URINE BARBITURATES SCREEN NEGATIVE; URINE METHADONE SCREEN NEGATIVE; URINE OPIATES LOW NEGATIVE; URINE PHENCYCLIDINE SCREEN NEGATIVE
--- NOTE | 2017-05-20 16:01 | ER Document Report ---
ED Psych Disorder / Suicide - General TRAVEL OUTSIDE OF THE U.S. IN LAST 30 DAYS: No <DARIEN ROCA - Last Filed: 05/20/17 15:40> <CHARANJIT PITTMAN - Last Filed: 05/20/17 16:05> - General Chief Complaint: Other Stated Complaint: POSSIBLE COCAINE ABUSE Time Seen by Provider: 05/20/17 14:47 - HPI Notes: pt requesting destox from cocaine, pt stated he smoked $1600 in cocaine. pt is requesting detox, pt started for the 2nd time in 2013. pt alert and oriented calm and cooperative. Patient disclosed he smoked all his money; crack cocaine. Patient continued to disclose that he like to go inpatient and was at the [place] [facility]; he was told that we could transport him to [place]. Patient continued disclosed that it would be optimal if he could go inpatient. Patient states he did not have money to pay his rent and he will probably be kicked out; however, he does still have the apartment now. Patient asked about being transported to the [facility] if [place] was not a possibility. Disclosed he is not suicidal. He states that he would like to go to his home and grab some of the things he does not want to lose and then put it into storage while in inpatient treatment. Attempted to contact local [place]; left message Patient is alert and orientated to person, place time and circumstance. Mood is euthymic with congruent affect. Patient denies suicidal and homicidal ideation. No delusions are noted. Patient denies auditory and visual hallucinations; patient is not demonstrating any behavior congruent with responding to internal stimuli. Thought process is organized and linear. Thought content is focused on inpatient treatment for substance abuse. Conversational speech was within normal rate tone and prosody; clinician notes patient has hearing loss and requires speakers to project her voice. Attention and concentration were fair. Insight, judgment, impulse control appears to be historically poor due to substance abuse. 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 Patient does not meet IVC criteria per [place] GS 122C. Patient denies suicidal and homicidal ideation. Patient is not demonstrating any behavior congruent with acute psychosis. Patient disclosed he would like inpatient substance abuse treatment. Clinician provided resources for substance abuse treatment and conducted problem solving. Patient decided to go back to his apartment to retrieve valuables to put into storage and then contact inpatient treatment facilities and local [place] for transportation and bed availability. (DARIEN ROCA) - Related Data Allergies/Adverse Reactions: typhoid vaccine Allergy (Verified 05/20/17 14:33) Past Medical History - Social History Smoking Status: Unknown if Ever Smoked Drug Abuse: Cocaine Family History: Reviewed & Not Pertinent, Other - Father, Grand father- Cerebral Aneurysm Patient has suicidal ideation: No Patient has homicidal ideation: No - Past Medical History Cardiac Medical History: Reports: Hx Hypertension Renal/ Medical History: Reports: Hx Kidney Stones. Denies: Hx Peritoneal Dialysis GI Medical History: Reports: Hx Crohn's Disease Musculoskeltal Medical History: Reports Hx Arthritis Traumatic Medical History: Reports: Hx Fractures Past Surgical History: Reports: Hx Bowel Surgery - Perf. Bowel - Immunizations Hx Diphtheria, Pertussis, Tetanus Vaccination: Yes <DARIEN ROCA - Last Filed: 05/20/17 15:40> - General Information source: Patient - Social History Smoking Status: Current Every Day Smoker Frequency of alcohol use: None Drug Abuse: Cocaine <CHARANJIT PITTMAN - Last Filed: 05/20/17 16:05> Review of Systems - Review of Systems Constitutional: denies: Chills, Fever Cardiovascular: denies: Chest pain, Palpitations Respiratory: denies: Cough, Short of breath Gastrointestinal: denies: Abdominal pain, Diarrhea, Vomiting <CHARANJIT PITTMAN - Last Filed: 05/20/17 16:05> Physical Exam - Vital signs Interpretation: Hypertensive, Tachycardic - Cardiovascular Rhythm: Tachycardia Heart sounds: Normal auscultation Murmur: No <CHARANJIT PITTMAN - Last Filed: 05/20/17 16:05> - Vital signs Vitals: Temp Pulse Resp BP Pulse Ox 97.9 F 111 H 18 136/97 H 94 05/20/17 14:31 05/20/17 14:31 05/20/17 14:31 05/20/17 14:31 05/20/17 14:31 Course - Laboratory Result Diagrams: 05/20/17 15:14 05/20/17 15:14 <DARIEN ROCA - Last Filed: 05/20/17 15:40> - Laboratory Result Diagrams: 05/20/17 15:14 05/20/17 15:14 <CHARANJIT PITTMAN - Last Filed: 05/20/17 16:05> - Vital Signs Vital signs: Temp Pulse Resp BP Pulse Ox 97.9 F 111 H 18 136/97 H 94 05/20/17 14:31 05/20/17 14:31 05/20/17 14:31 05/20/17 14:31 05/20/17 14:31 - Laboratory Laboratory results interpreted by me: 05/20/17 05/20/17 05/20/17 15:00 15:14 15:14 WBC 13.4 H Seg Neutrophils % 84.9 H Lymphocytes % 6.5 L Absolute Neutrophils 11.4 H Total Protein 8.3 H Urine Ketones TRACE H Urine Blood MODERATE H Urine Urobilinogen 2.0 H Salicylates < 1.0 L Acetaminophen < 10 L Discharge <DARIEN ROCA - Last Filed: 05/20/17 15:40> <CHARANJIT PITTMAN - Last Filed: 05/20/17 16:05> - Discharge Clinical Impression: Cocaine abuse, Nutrition Condition: Stable Disposition: HOME, SELF-CARE Instructions: Cocaine Abuse ([facility]) Additional Instructions: Cocaine Abuse Cocaine causes many dangerous medical problems. Problems can occur even with "usual" amounts. Cocaine affects judgement, creating a sense of invulnerability. Cocaine users often make bad decisions that seem "great" at the time. Most cocaine users eventually will be hurt by bad job performance, damaged personal relations, crime, and unsafe sexual practices. Toxic effects of cocaine can include seizures, hallucinations, delusions, high blood pressure, heart damage, or sudden . There's always the risk of a "bad batch." But heart attacks, brain hemorrhages, or cardiac arrest can occur unpredictably even with "normal" use. Injection of cocaine is risky for abscesses, endocarditis (heart infection) , pneumonia, and AIDS. Withdrawal from cocaine often causes anxiety and drug cravings. Some users become paranoid and psychotic. Many treatment programs are available, but you must make the decision to quit. Medication can be prescribed to control the symptoms of cocaine toxicity (beta blockers or benzodiazepines). Withdrawal symptoms may require tranquilizers. FOLLOW-UP CARE: [facility]. If you experience worsening or a significant change in your symptoms , notify the physician immediately or return to the Emergency Department at any time for re-evaluation.
[2017-05-20 16:30] VITALS: BP 142/96
--- NOTE | 2017-05-20 16:43 | PSYCHOLOGICAL NOTE ---
Psych Note - Psych Note Psych Note: Yuki from the [facility] returned phone call. She identified patient was seen by Kieran today, had reported using $1600 worth of crack/cocaine this AM, and due to his medical issues they suggested he come to the ED for medical clearance. Ultimately they had concern regarding what that amount of crack/cocaine may do to his medical issues. Yuki identified patient has an appointment with Hilaria tomorrow (05/21/2017) at 0900. She was made aware patient had come to the ED and was discharged with [facility] treatment options/information.
--- NOTE | 2017-05-20 18:26 | EKG REPORT ---
SEVERITY:- ABNORMAL ECG - SINUS RHYTHM LEFT ANTERIOR FASCICULAR BLOCK NONSPECIFIC T ABNORMALITIES, LATERAL LEADS : Confirmed by: Hernandez Pearce MD 20-May-2017 18:25:27
== END 2017-05-20 16:33 | disposition home or self-care (01) ==
LOC: ER 14:28
DX: F14.10 Cocaine abuse, uncomplicated (principal); R00.0 Tachycardia, unspecified; I10 Essential (primary) hypertension; H91.90 Unspecified hearing loss, unspecified ear; F17.200 Nicotine dependence, unspecified, uncomplicated; Z88.7 Allergy status to serum and vaccine
CPT/HCPCS: 36415; 80053; 80307; 81001; 85025; 93005; 93010; 99285

== ENCOUNTER 2017-06-02 12:12 | Emergency (ER) | payer OTHER ==
[2017-06-02] MEDS ORDERED: NORMAL SALINE 1000 ML 1,000 ML IV ONE (12:18)
[2017-06-02] MEDS ORDERED: HYDROMORPHONE HCL INJ/PF 2 MG/ML AMPULE IV ONE (12:18)
--- NOTE | 2017-06-02 12:20 | ER Document Report ---
ED General - General Stated Complaint: ABDOMINAL PAIN Time Seen by Provider: 06/02/17 12:17 Notes: 72-year-old male with a reported history of Crohn's disease with "burst bowel" requiring surgery in the 70s presents with acute onset bilateral lower quadrant pain sharp followed by diarrhea. No blood. Now he feels constipated. The pain is persisted and radiates to bilateral groins. No mass or hernia. No vomiting or fever. He was sent from the [place] clinic. Looking his in's his incision it appears to be an appendectomy scar. TRAVEL OUTSIDE OF THE [place]. IN LAST 30 DAYS: No - Related Data Allergies/Adverse Reactions: typhoid vaccine Allergy (Verified 06/02/17 12:42) Past Medical History - General Information source: Patient - Social History Smoking Status: Current Some Day Smoker Smoking Education Provided: Yes - The patient ED visit today was directly related to their abuse of tobacco. Drug Abuse: Cocaine - Crack last used 2 weeks ago Family History: Reviewed & Not Pertinent, Other - Father, Grand father- Cerebral Aneurysm - Past Medical History Cardiac Medical History: Reports: Hx Hypertension Renal/ Medical History: Reports: Hx Kidney Stones. Denies: Hx Peritoneal Dialysis GI Medical History: Reports: Hx Crohn's Disease Musculoskeltal Medical History: Reports Hx Arthritis Traumatic Medical History: Reports: Hx Fractures Past Surgical History: Reports: Hx Bowel Surgery - Perf. Bowel - Immunizations Hx Diphtheria, Pertussis, Tetanus Vaccination: Yes Review of Systems - Review of Systems Notes: REVIEW OF SYSTEMS GEN: Denies fever, chills, weight loss ENT: Denies sore throat, nasal discharge, ear pain EYES: Denies blurry vision, eye pain, discharge CV: Denies chest pain, palpitations, edema RESP: Denies cough, shortness of breath, wheezing GI: Bilateral lower abdominal pain MSK: Denies joint pain/swelling, edema, SKIN: Denies rash, skin lesions LYMPH: Denies swollen glands/lymph nodes NEURO: Denies headache, focal weakness or numbness, dizziness PSYCH: Denies depression, suicidal or homicidal ideation PHYSICAL EXAMINATION General: No acute distress, well-nourished Head: Atraumatic, normocephalic ENT: Mouth normal, oropharynx moist, no exudates or tonsillar enlargement Eyes: Conjunctiva normal, pupils equal, lids normal Neck: No JVD, supple, no guarding CVS: Normal rate, regular rhythm, no murmurs Resp: No resp distress, equal and normal breath sounds bilaterally GI: Nondistended, soft, what appears to be an open appendectomy scar. Bilateral lower quadrant tenderness. Ext: No deformities, no edema, normal range of motion in upper and lower ext Back: No CVA or midline TTP Skin: No rash, warm Lymphatic: No lymphadeopathy noted Neuro: Awake, alert. Face symmetric. GCS 15. Physical Exam - Vital signs Vitals: Resp Pulse Ox 10 L 99 06/02/17 12:20 06/02/17 12:20 Course - Re-evaluation Re-evalutation: 06/02/17 12:20 Acute bilateral lower quadrant pain in a patient with reported history of Crohn' s, however it seems like he may have had a ruptured appendix rather than Crohn' s given this incision that he has. Differential includes diverticulitis Crohn' s flare with abscess or perforation most likely appendectomy, versus urinary. Plan: Dilaudid for pain control, labs and CT scan. 06/02/17 14:06 CT shows no acute findings. Lots of fluid filled small bowel feels is likely a diarrheal illness. The patient to be discharged home with Imodium. I have discussed with the patient there likely diagnosis, aftercare plan, follow-up plans and my usual and customary return precautions. They verbalized understanding of this. - Vital Signs Vital signs: Temp Pulse Resp BP Pulse Ox 14 157/105 H 100 06/02/17 12:28 06/02/17 12:28 06/02/17 12:28 - Laboratory Result Diagrams: 06/02/17 12:22 06/02/17 12:22 Laboratory results interpreted by me: 06/02/17 06/02/17 12:22 12:22 WBC 12.0 H Seg Neuts % (Manual) 88 H Band Neutrophils % 1 L Lymphocytes % (Manual) 5 L Abs Neuts (Manual) 10.7 H AST 13 L - Diagnostic Test Radiology reviewed: Pending, Image reviewed, Reports reviewed Discharge - Discharge Clinical Impression: Abdominal pain Qualifiers: Abdominal location: lower abdomen, unspecified Qualified Code(s): R10.30 - Lower abdominal pain, unspecified Condition: Good Disposition: HOME, SELF-CARE Instructions: Abdominal Pain ([facility]) Additional Instructions: Your laboratory testing showed mild inflammation but your CAT scan was normal. He may be having a diarrheal illness. Please follow-up with your regular doctor.
[2017-06-02 12:34] LABS: HEMATOCRIT 43.1 % (37.9-51.0); HEMOGLOBIN 14.7 g/dL (13.5-17.0); MEAN CORPUSCULAR HEMOGLOBIN 29.7 pg (27.0-33.4); MEAN CORPUSCULAR HGB CONC 34.2 g/dL (32.0-36.0); MEAN CORPUSCULAR VOLUME 87 fl (80-97); RED BLOOD COUNT 4.96 10^6/uL (4.35-5.55); RED CELL DISTRIBUTION WIDTH 13.8 % (11.5-14.0)
[2017-06-02 12:49] LABS: ALANINE AMINOTRANSFERASE 26 U/L (21-72); ALKALINE PHOSPHATASE 116 U/L (38-126); ANION GAP 11 (5-19); ASPARTATE AMINO TRANSFERASE 13 U/L (17-59); BILIRUBIN,DIRECT 0.4 mg/dL (0.0-0.4); BILIRUBIN,TOTAL 0.6 mg/dL (0.2-1.3); BLOOD UREA NITROGEN 19 mg/dL (7-20); CALCIUM 9.6 mg/dL (8.4-10.2); CARBON DIOXIDE 27 mmol/L (22-30); CHLORIDE 105 mmol/L (98-107); CREATININE RESULT 1.09 mg/dL (0.52-1.25); GLUCOSE 98 mg/dL (75-110); POTASSIUM 4.2 mmol/L (3.6-5.0); SODIUM 143.3 mmol/L (137-145)
[2017-06-02 12:55] LABS: BAND NEUTROPHILS % (MANUAL) 1 % (3-5); BASOPHILS % (MANUAL) 0 % (0-2); EOSINOPHILS % (MANUAL) 1 % (0-6); LYMPHOCYTES % (MANUAL) 5 % (13-45); TOTAL CELLS COUNTED 100
[2017-06-02 12:56] LABS: RBC MORPHOLOGY COMMENT NORMO-CYTIC/CHROMIC
--- NOTE | 2017-06-02 13:59 | RADIOLOGY REPORT (SQ) ---
EXAM DESCRIPTION: CT ABD/PELVIS WITH IV ONLY COMPLETED DATE/TIME: 06/02/2017 1:25 pm REASON FOR STUDY: LLQ pn, h/o Crohn's- r/o abscess/perf COMPARISON: 08/29/2015 TECHNIQUE: CT scan of the abdomen and pelvis performed using helical scanning technique with dynamic intravenous contrast injection. No oral contrast. Images reviewed with lung, soft tissue, and bone windows. Reconstructed coronal and sagittal MPR images reviewed. Delayed images for evaluation of the urinary system also acquired. All images stored on PACS. All CT scanners at this facility use dose modulation, iterative reconstruction, and/or weight based d osing when appropriate to reduce radiation dose to as low as reasonably achievable (ALARA). [facility]: Dose Right [facility]: CareDose [facility]: Dose Right [facility]: Teradose 4D [facility]: Dolosys CONTRAST TYPE AND DOSE: contrast/concentration: Isovue 370.00 mg/ml; Total Contrast Delivered: 76.0 ml; Total Saline Delivered: 67.0 ml RENAL FUNCTION: BUN 19 creatinine 1.1 RADIATION DOSE: Up-to-date CT equipment and radiation dose reduction techniques were employed. CTDIv ol: 6.3 - 8.4 mGy. DLP: 732 mGy-cm.. LIMITATIONS: None. FINDINGS: LOWER CHEST: Large hiatal hernia. LIVER: Normal size. No masses. No dilated ducts. SPLEEN: Normal size. No focal lesions. PANCREAS: No masses. No significant calcifications. No adjacent inflammation or peripancreatic fluid collections. Pancreatic duct not dilated. GALLBLADDER: No identified stones by CT criteria. No inflammatory changes to suggest cholecystitis. ADRENAL GLANDS: No significant masses or asymmetry. RIGHT KIDNEY AND URETER: No solid masses. No significant calcifications. No hydronephrosis or hyd roureter. LEFT KIDNEY AND URETER: No solid masses. No significant calcifications. No hydronephrosis or hydr oureter. AORTA AND VESSELS: No aneurysm. RETROPERITONEUM: No retroperitoneal adenopathy, hemorrhage or masses. BOWEL AND PERITONEAL CAVITY: Diverticulosis descending and sigmoid colon. No masses or inflammatory changes. No free fluid or peritoneal masses. APPENDIX: Normal. PELVIS: No mass. No free fluid. Normal bladder. ABDOMINAL WALL: No masses. No hernias. BONES: No significant or acute findings. OTHER: No other significant finding. IMPRESSION: No acute findings in the abdomen or pelvis. TECHNICAL DOCUMENTATION: JOB ID: [id number] Quality ID # [id number]: Final reports with documentation of one or more dose reduction techniques (e.g., Au tomated exposure control, adjustment of the mA and/or kV according to patient size, use of iterative reconstruction technique) 2010 [employer]- All Rights Reserved
[2017-06-02 14:21] VITALS: BP 144/98
[2017-06-02 14:23] LABS: APPEARANCE,URINE SLIGHTLY-CLOUDY; BILIRUBIN,URINE NEGATIVE (NEGATIVE); GLUCOSE, URINE NEGATIVE (NEGATIVE); KETONES,URINE NEGATIVE (NEGATIVE); LEUKOCYTE ESTERASE,URINE NEGATIVE (NEGATIVE); NITRITE,URINE NEGATIVE (NEGATIVE); PROTEIN,URINE 100 mg/dL (NEGATIVE); URINE SPECIFIC GRAVITY 1.013; UROBILINOGEN,URINE NEGATIVE mg/dL (<2.0)
== END 2017-06-02 14:32 | disposition home or self-care (01) ==
LOC: ER 12:12
DX: R10.9 Unspecified abdominal pain (principal); R10.30 Lower abdominal pain, unspecified; F17.200 Nicotine dependence, unspecified, uncomplicated
CPT/HCPCS: 99284; 36415; 85025; 80053; 81001; 74177; J1170; J7030

== ENCOUNTER 2017-06-13 08:10 | Emergency (ER) | payer OTHER ==
--- NOTE | 2017-06-13 09:32 | ER Document Report ---
ED General - General Mode of Arrival: Ambulatory Information source: Patient TRAVEL OUTSIDE OF THE U.S. IN LAST 30 DAYS: No - HPI Onset: Other - Refer to HPI notes Similar symptoms previously: Yes Recently seen / treated by doctor: No <SONIDO VARGAS - Last Filed: 06/13/17 10:56> <BRAEDENMELODYJAVIER - Last Filed: 06/13/17 10:57> - General Chief Complaint: Flank Pain Stated Complaint: FLANK PAIN Time Seen by Provider: 06/13/17 09:23 Notes: Patient is a 72 year old male presenting to the ED for bilateral flank pain x 4- 5 days. Patient states his pain is worse on the right than the left. Patient has a history of kidney stones and states that this feels similar to such. Patient also has some burning with urination but denies any fevers, nausea, or vomiting, or hematuria. Patient also complains of a rash to his left groin, buttocks, and thigh. Patient noticed it about 4-5 days ago as well. Patient states it is not on the right side and it is only painful if it is touched. Patient does have a history of arthritis and is a . [facility] [place] [facility]. (SONIDO VARGAS) - Related Data Allergies/Adverse Reactions: typhoid vaccine Allergy (Verified 06/13/17 08:45) Past Medical History - General Information source: Patient - Social History Smoking Status: Current Every Day Smoker Chew tobacco use (# tins/day): No Smoking Education Provided: Yes - >5 minutes Frequency of alcohol use: None Drug Abuse: None Lives with: Homeless Family History: Other - Father, Grand father- Cerebral Aneurysm Patient has suicidal ideation: No Patient has homicidal ideation: No - Past Medical History Cardiac Medical History: Reports: Hx Hypertension Renal/ Medical History: Reports: Hx Kidney Stones GI Medical History: Reports: Hx Crohn's Disease Musculoskeltal Medical History: Reports Hx Arthritis Traumatic Medical History: Reports: Hx Fractures Past Surgical History: Reports: Hx Bowel Surgery - Perf. Bowel - Immunizations Hx Diphtheria, Pertussis, Tetanus Vaccination: Yes <SONIDO VARGAS - Last Filed: 06/13/17 10:56> Review of Systems - Review of Systems Constitutional: No symptoms reported EENT: No symptoms reported Cardiovascular: No symptoms reported Respiratory: No symptoms reported Gastrointestinal: No symptoms reported Genitourinary: See HPI, Burning, Flank pain Male Genitourinary: No symptoms reported Musculoskeletal: No symptoms reported Skin: See HPI, Lesions Hematologic/Lymphatic: No symptoms reported Neurological/Psychological: No symptoms reported -: Yes All other systems reviewed and negative <SAMSONIDO - Last Filed: 06/13/17 10:56> Physical Exam - Vital signs Interpretation: Hypertensive <SONIDO VARGAS - Last Filed: 06/13/17 10:56> <JAVIER SALAMANCA - Last Filed: 06/13/17 10:57> - Vital signs Vitals: Temp Pulse Resp BP Pulse Ox 97.6 F 81 22 H 149/93 H 96 06/13/17 08:45 06/13/17 08:45 06/13/17 08:45 06/13/17 08:45 06/13/17 08:45 - Notes Notes: GENERAL: Alert, interacts well. No acute distress. HEAD: Normocephalic, atraumatic. EYES: Pupils equal, round, and reactive to light. Extraocular movements intact. ENT: Oral mucosa moist, tongue midline. NECK: Full range of motion. Supple. Trachea midline. LUNGS: Clear to auscultation bilaterally, no wheezes, rales, or rhonchi. No respiratory distress. HEART: Regular rate and rhythm. No murmurs, gallops, or rubs. ABDOMEN: Soft, non-tender. Non-distended. Bowel sounds present in all 4 quadrants. EXTREMITIES: Moves all 4 extremities spontaneously. No edema. No cyanosis. Left knee brace. NEUROLOGICAL: Alert and oriented x3. Normal speech. PSYCH: Normal affect, normal mood. SKIN: Warm, dry, normal turgor. Vesicular lesions with erythematous base from midline left lumbar region wrapping around the left buttocks and including the left groin, left carmen-scrotum, and down the left thigh to the medial aspect of the knee. Some vesicles are crusted over, some are still intact and are clear fluid filled vesicular lesions. (SONIDO VARGAS) Course - Laboratory Result Diagrams: 06/13/17 09:50 06/13/17 09:50 <SONIDO VARGAS - Last Filed: 06/13/17 10:56> - Laboratory Result Diagrams: 06/13/17 09:50 06/13/17 09:50 <JAVIER SALAMANCA - Last Filed: 06/13/17 10:57> - Re-evaluation Re-evalutation: 06/13/17 10:26 CBC shows thrombocytopenia, no leukocytosis, CMP unremarkable, urinalysis does not show any signs of blood. The patient's symptoms are not suspicious for catastrophic intra-abdominal pathology, patient may have already passed the stone. More likely patient's symptoms are coming from his herpes zoster. Patient will be treated with acyclovir and Neurontin. Patient will be discharged home, request to return for abdominal pain, fever, vomiting or any new or concerning symptoms. Warned not to go around babies or women. ( JAVIER SALAMANCA) - Vital Signs Vital signs: Temp Pulse Resp BP Pulse Ox 97.2 F 80 16 168/102 H 99 06/13/17 10:41 06/13/17 10:41 06/13/17 10:41 06/13/17 10:41 06/13/17 10:41 - Laboratory Laboratory results interpreted by me: 06/13/17 09:50 RDW 14.2 H Plt Count 139 L Lymphocytes % 12.0 L Discharge <SONIDO VARGAS - Last Filed: 06/13/17 10:56> <JAVIER SALAMANCA - Last Filed: 06/13/17 10:57> - Discharge Clinical Impression: Tobacco abuse, Tobacco abuse counseling Herpes zoster Qualifiers: Herpes zoster complications: without complications Qualified Code(s): B02.9 - Zoster without complications Bilateral low back pain Qualifiers: Chronicity: acute Sciatica presence: without sciatica Qualified Code(s): M54.5 - Low back pain Hypertension Qualifiers: Hypertension type: essential hypertension Qualified Code(s): I10 - Essential ( primary) hypertension Condition: Stable Disposition: HOME, SELF-CARE Additional Instructions: Shingles You have shingles. Shingles is caused by the chicken pox virus, The virus has been surviving dormant in a nerve cell since you had chicken pox years ago. The virus has spread down a nerve root to reach the skin. Typically, an band-like area of pain and skin sensitivity develops, then small blisters erupt in the area. Shingles lasts two or three weeks, but sometimes leaves persistent pain. You are contagious -- you can give children chicken pox. But you can't give anyone shingles. Antiviral medicines (such as acyclovir or famciclovir) can help, but the rash usually worsens for about a week. Pain medication is often given if the area hurts. Antihistamines such as Benadryl may be necessary for itching if it does not respond to soda baths and calamine lotion. Sometimes cortisone medicine or nerve-block shots are necessary if pain is severe. If the area remains severely painful as the sores heal, or if you suspect an infection developing in the sores, see your doctor. There is no evidence of a kidney stone today. Return for worsening pain, abdominal pain, fevers, vomiting or diarrhea or any new or concerning symptoms. Prescriptions: Acyclovir 800 mg PO 5XD #35 tablet Gabapentin [Neurontin 300 mg Capsule] 300 mg PO Q8 #60 cap Forms: Elevated Blood Pressure, Smoking Cessation Education Referrals: [facility] [Provider Group] - Follow up in 3-5 days Scribe Attestation: 06/13/17 10:57 I personally performed the services described in the documentation, reviewed and edited the documentation which was dictated to the scribe in my presence, and it accurately records my words and actions. (JAVIER SALAMANCA) Scribe Documentation - Scribe Written by Rhiannon:: Rhiannon Blackwood 06/13/17 10:43 acting as scribe for :: Muriel <SONIDO VARGAS - Last Filed: 06/13/17 10:56>
--- NOTE | 2017-06-13 09:32 | ER Document Report ---
ED Medical Screen (RME) - General Chief Complaint: Flank Pain Stated Complaint: FLANK PAIN Time Seen by Provider: 06/13/17 09:23 Notes: Patient is a 72 year old male presenting to the ED for bilateral flank pain x 4- 5 days. worse on the right than the left no fevers swenson with urination no blood with urination no nausea/vomiting tender but not painful arthritis vesic lesi with lili base from midline left lumbar rgion luis around left buttock , includs groin, left carmen scrotom and down thigh to the left knee some vesicles are crusted over heart lungs good no abdominal tednernes smokes no otherwise TRAVEL OUTSIDE OF THE [place]. IN LAST 30 DAYS: No - Related Data Allergies/Adverse Reactions: typhoid vaccine Allergy (Verified 06/13/17 08:45) Past Medical History - Past Medical History Cardiac Medical History: Reports: Hx Hypertension Renal/ Medical History: Reports: Hx Kidney Stones. Denies: Hx Peritoneal Dialysis GI Medical History: Reports: Hx Crohn's Disease Musculoskeltal Medical History: Reports Hx Arthritis Traumatic Medical History: Reports: Hx Fractures Past Surgical History: Reports: Hx Bowel Surgery - Perf. Bowel - Immunizations Hx Diphtheria, Pertussis, Tetanus Vaccination: Yes Physical Exam - Vital signs Vitals: Temp Pulse Resp BP Pulse Ox 97.6 F 81 22 H 149/93 H 96 06/13/17 08:45 06/13/17 08:45 06/13/17 08:45 06/13/17 08:45 06/13/17 08:45 Course - Vital Signs Vital signs: Temp Pulse Resp BP Pulse Ox 97.6 F 81 22 H 149/93 H 96 06/13/17 08:45 06/13/17 08:45 06/13/17 08:45 06/13/17 08:45 06/13/17 08:45
[2017-06-13] MEDS ORDERED: ACYCLOVIR 800 MG TABLET PO ONE (09:33)
[2017-06-13 10:01] LABS: ABSOLUTE EOSINOPHILS # (AUTO) 0.1 10^3/uL (0.0-0.6); ABSOLUTE LYMPHOCYTES (AUTO) 0.5 10^3/uL (0.5-4.7); ABSOLUTE MONOCYTES (AUTO) 0.6 10^3/uL (0.1-1.4); ABSOLUTE NEUT (AUTO) 3.2 10^3/uL (1.7-8.2); EOSINOPHILS % (AUTO) 2.2 % (0-6); HEMATOCRIT 43.6 % (37.9-51.0); HEMOGLOBIN 14.7 g/dL (13.5-17.0); HGB HCT DIFFERENCE 0.5; MEAN CORPUSCULAR HEMOGLOBIN 29.3 pg (27.0-33.4); MEAN CORPUSCULAR HGB CONC 33.7 g/dL (32.0-36.0); MEAN CORPUSCULAR VOLUME 87 fl (80-97); MONOCYTES % (AUTO) 12.8 % (3-13); RED BLOOD COUNT 5.02 10^6/uL (4.35-5.55); RED CELL DISTRIBUTION WIDTH 14.2 % (11.5-14.0); WHITE BLOOD COUNT 4.5 10^3/uL (4.0-10.5)
[2017-06-13 10:10] LABS: APPEARANCE,URINE CLEAR; BILIRUBIN,URINE NEGATIVE (NEGATIVE); GLUCOSE, URINE NEGATIVE (NEGATIVE); KETONES,URINE NEGATIVE (NEGATIVE); LEUKOCYTE ESTERASE,URINE NEGATIVE (NEGATIVE); NITRITE,URINE NEGATIVE (NEGATIVE); PROTEIN,URINE NEGATIVE (NEGATIVE); UROBILINOGEN,URINE NEGATIVE mg/dL (<2.0)
[2017-06-13 10:18] LABS: ALANINE AMINOTRANSFERASE 38 U/L (21-72); ALBUMIN 3.9 g/dL (3.5-5.0); ALKALINE PHOSPHATASE 116 U/L (38-126); ANION GAP 8 (5-19); ASPARTATE AMINO TRANSFERASE 23 U/L (17-59); BILIRUBIN,DIRECT 0.4 mg/dL (0.0-0.4); BILIRUBIN,TOTAL 0.5 mg/dL (0.2-1.3); BLOOD UREA NITROGEN 15 mg/dL (7-20); CALCIUM 9.5 mg/dL (8.4-10.2); CARBON DIOXIDE 29 mmol/L (22-30); CHLORIDE 105 mmol/L (98-107); CREATININE RESULT 0.97 mg/dL (0.52-1.25); GLUCOSE 78 mg/dL (75-110); LIPASE 97.9 U/L (23-300); POTASSIUM 4.1 mmol/L (3.6-5.0); SODIUM 142.3 mmol/L (137-145); TOTAL PROTEIN 6.8 g/dL (6.3-8.2)
[2017-06-13 10:45] VITALS: BP 168/102
== END 2017-06-13 10:42 | disposition home or self-care (01) ==
LOC: ER 08:10
DX: M54.5 Low back pain (principal); B02.9 Zoster without complications; D69.6 Thrombocytopenia, unspecified; R30.0 Dysuria; I10 Essential (primary) hypertension; F17.200 Nicotine dependence, unspecified, uncomplicated; Z71.6 Tobacco abuse counseling; Z59.0 Homelessness; Z87.442 Personal history of urinary calculi; Z88.7 Allergy status to serum and vaccine
CPT/HCPCS: 99406; 99284; 36415; 83690; 85025; 81001; 80053; J3490

== ENCOUNTER 2017-07-02 16:17 | Emergency (ER) | payer OTHER ==
[2017-07-02 16:50] LABS: ABSOLUTE BASOPHILS # (AUTO) 0.1 10^3/uL (0.0-0.2); ABSOLUTE EOSINOPHILS # (AUTO) 0.1 10^3/uL (0.0-0.6); ABSOLUTE LYMPHOCYTES (AUTO) 0.7 10^3/uL (0.5-4.7); ABSOLUTE MONOCYTES (AUTO) 0.6 10^3/uL (0.1-1.4); BASOPHILS % (AUTO) 0.8 % (0-2); HEMATOCRIT 41.6 % (37.9-51.0); HEMOGLOBIN 14.3 g/dL (13.5-17.0); HGB HCT DIFFERENCE 1.3; LYMPHOCYTES % (AUTO) 6.1 % (13-45); MEAN CORPUSCULAR HEMOGLOBIN 29.8 pg (27.0-33.4); MEAN CORPUSCULAR HGB CONC 34.4 g/dL (32.0-36.0); MEAN CORPUSCULAR VOLUME 87 fl (80-97); MONOCYTES % (AUTO) 5.2 % (3-13); RED BLOOD COUNT 4.79 10^6/uL (4.35-5.55); RED CELL DISTRIBUTION WIDTH 14.9 % (11.5-14.0); SEGMENTED NEUTROPHILS % (AUTO) 86.9 % (42-78); WHITE BLOOD COUNT 11.5 10^3/uL (4.0-10.5)
--- NOTE | 2017-07-02 17:02 | RADIOLOGY REPORT (SQ) ---
EXAM DESCRIPTION: CHEST SINGLE VIEW COMPLETED DATE/TIME: 07/02/2017 4:53 pm REASON FOR STUDY: bed 6 cp COMPARISON: 01/09/2015 EXAM PARAMETERS: NUMBER OF VIEWS: One view. TECHNIQUE: Single frontal radiographic view of the chest acquired. RADIATION DOSE: NA LIMITATIONS: None. FINDINGS: LUNGS AND PLEURA: There is mild subsegmental atelectasis in the lung bases. MEDIASTINUM AND HILAR STRUCTURES: There is a hiatal hernia. No upper mediastinal mass is seen. Ther e is no adenopathy. HEART AND VASCULAR STRUCTURES: Heart normal in size. Normal vasculature. BONES: No acute findings. HARDWARE: None in the chest. OTHER: No other significant finding. IMPRESSION: Hiatal hernia with no acute cardiopulmonary disease. TECHNICAL DOCUMENTATION: JOB ID: [id number]
[2017-07-02 17:09] LABS: ALANINE AMINOTRANSFERASE 21 U/L (21-72); ALBUMIN 3.9 g/dL (3.5-5.0); ALKALINE PHOSPHATASE 104 U/L (38-126); ANION GAP 11 (5-19); ASPARTATE AMINO TRANSFERASE 13 U/L (17-59); BILIRUBIN,DIRECT 0.4 mg/dL (0.0-0.4); BILIRUBIN,TOTAL 0.6 mg/dL (0.2-1.3); BLOOD UREA NITROGEN 22 mg/dL (7-20); CALCIUM 9.5 mg/dL (8.4-10.2); CARBON DIOXIDE 26 mmol/L (22-30); CHLORIDE 108 mmol/L (98-107); CREATINE KINASE 78 U/L (55-170); CREATININE RESULT 1.13 mg/dL (0.52-1.25); GLUCOSE 90 mg/dL (75-110); SODIUM 144.9 mmol/L (137-145); TOTAL PROTEIN 6.8 g/dL (6.3-8.2)
[2017-07-02 17:21] LABS: CREATINE KINASE MB 1.54 ng/mL (<4.55)
[2017-07-02 17:23] LABS: TROPONIN I < 0.012 ng/mL
[2017-07-02] MEDS ORDERED: METOCLOPRAMIDE HCL ORAL SOLN 10 MG/10 ML UDCUP PO ONE (19:08)
[2017-07-02] MEDS ORDERED: LIDOCAINE 2% VISCOUS SOLN 20 ML UDCUP PO ONE (19:08)
[2017-07-02] MEDS ORDERED: MAG HYDROX/AL HYDROX/SIMETH SUSP 30 ML UDCUP PO ONE (19:08)
[2017-07-02] MEDS ORDERED: FAMOTIDINE 20 MG TABLET PO ONE (19:09)
--- NOTE | 2017-07-02 20:36 | ER Document Report ---
ED General - General Chief Complaint: Chest Pain Stated Complaint: CHEST PAIN Time Seen by Provider: 07/02/17 18:23 Notes: Patient is a 72-year-old male who presents with an episode of chest pain that started after he choked on a piece of food. Patient states that when he was eating some stew earlier today around 10 AM he choked, had an episode of vomiting, and since that time has had a dull, burning, pressure-like sensation in his central chest. He took nitroglycerin without any relief of the pain. He has a history of similar symptoms in the past but knows that they are not typically this severe. Denies any known cardiac history. Denies any associated diaphoresis or shortness of breath. No radiation of the pain to the arms, jaw or back. He has not seen his primary doctor regarding today's concerns. He denies any abdominal pain. At the time of my assessment he states his pain has completely resolved. TRAVEL OUTSIDE OF THE [place] IN LAST 30 DAYS: No - Related Data Allergies/Adverse Reactions: typhoid vaccine Allergy (Verified 06/13/17 08:45) Home Medications: Current Home Medications Aspirin [Aspirin 325 mg Tablet] 975 mg PO TID 07/02/17 [History] Past Medical History - General Information source: Patient - Social History Smoking Status: Former Smoker Chew tobacco use (# tins/day): No Frequency of alcohol use: None Drug Abuse: None Lives with: Homeless Family History: Reviewed & Not Pertinent, Other - Father, Grand father- Cerebral Aneurysm - Past Medical History Cardiac Medical History: Reports: Hx Hypertension Renal/ Medical History: Reports: Hx Kidney Stones. Denies: Hx Peritoneal Dialysis GI Medical History: Reports: Hx Crohn's Disease Musculoskeltal Medical History: Reports Hx Arthritis Traumatic Medical History: Reports: Hx Fractures Past Surgical History: Reports: Hx Bowel Surgery - Perf. Bowel - Immunizations Hx Diphtheria, Pertussis, Tetanus Vaccination: Yes Review of Systems - Review of Systems Notes: Constitutional: Negative for fever. HENT: Negative for sore throat. Eyes: Negative for visual changes. Cardiovascular: Positive for chest pain. Respiratory: Negative for shortness of breath. Gastrointestinal: Negative for abdominal pain, vomiting or diarrhea. Genitourinary: Negative for dysuria. Musculoskeletal: Negative for back pain. Skin: Negative for rash. Neurological: Negative for headaches, weakness or numbness. 10 point ROS negative except as marked above and in HPI. Physical Exam - Vital signs Vitals: Pulse Ox 98 07/02/17 16:26 Interpretation: Normal Notes: PHYSICAL EXAMINATION: GENERAL: Well-appearing, well-nourished and in no acute distress. HEAD: Atraumatic, normocephalic. EYES: Pupils equal round and reactive to light, extraocular movements intact, sclera anicteric, conjunctiva are normal. ENT: nares patent, oropharynx clear without exudates. Moist mucous membranes. NECK: Normal range of motion, supple without lymphadenopathy LUNGS: Breath sounds clear to auscultation bilaterally and equal. No wheezes rales or rhonchi. HEART: Regular rate and rhythm without murmurs ABDOMEN: Soft, nontender, normoactive bowel sounds. No guarding, no rebound. No masses appreciated. EXTREMITIES: Normal range of motion, no pitting or edema. No cyanosis. NEUROLOGICAL: No focal neurological deficits. Moves all extremities spontaneously and on command. PSYCH: Normal mood, normal affect. SKIN: Warm, Dry, normal turgor, no rashes or lesions noted. Course - Re-evaluation Re-evalutation: 07/02/17 20:33 Presentation of chest pain in an otherwise well appearing patient. Low clinical suspicion for ACS given clinical history, exam, EKG without ST elevations or depressions, and negative initial troponin. HEART score less than or equal to 3. Patient initially had tachycardia although this is resolved by the time of my assessment with a normal heart rate. Patient's clinical history is not all consistent with an acute pulmonary embolus. CXR without evidence of pneumothorax or pneumonia. No widened mediastinum. Aortic dissection also seems unlikely given history, symmetric pulses, CXR, and vitals. Initial troponin was obtained greater than 6 hours after onset of symptoms. Moreover, the patient's clinical history of the pain starting immediately upon swallowing of food bolus and then vomiting is much more consistent with esophageal irritation. He states that his pain has been completely relieved after GI cocktail here in the emergency department. Although this is not a diagnostic test, his normal EKG, normal troponin, and clinical history are not all consistent with a cardiac etiology of his presentation today. At this time will discharge with return precautions and follow-up recommendations. Verbal discharge instructions given a the bedside and opportunity for questions given. Medication warnings reviewed. Patient is in agreement with this plan and has verbalized understanding of return precautions and the need for primary care follow-up in the next 24-72 hours. - Vital Signs Vital signs: Temp Pulse Resp BP Pulse Ox 98.7 F 29 H 92/75 L 95 07/02/17 16:35 07/02/17 20:01 07/02/17 20:01 07/02/17 20:01 - Laboratory Result Diagrams: 07/02/17 16:29 07/02/17 16:29 Laboratory results interpreted by me: 07/02/17 07/02/17 16:29 16:29 WBC 11.5 H RDW 14.9 H Seg Neutrophils % 86.9 H Lymphocytes % 6.1 L Absolute Neutrophils 10.0 H Chloride 108 H BUN 22 H AST 13 L - Diagnostic Test Radiology reviewed: Image reviewed, Reports reviewed Radiology results interpreted by me: 07/02/17 20:35 Chest x-ray: No acute infiltrate or pneumothorax - EKG Interpretation by Me Additional EKG results interpreted by me: 07/02/17 20:35 Sinus tachycardia. Rate 124. No ST elevations or depressions. QTC is 471. Discharge - Discharge Clinical Impression: Odynophagia Chest pain Qualifiers: Chest pain type: unspecified Qualified Code(s): R07.9 - Chest pain, unspecified Condition: Good Disposition: HOME, SELF-CARE Additional Instructions: You were seen today for chest pain. The exact cause of your pain is unclear. However, based on your cardiac enzyme testing, chest x-ray, and EKG it does not appear that it is from an immediately life-threatening cause at this time. Although your testing here is normal is critical that you follow-up with your primary care physician for continued evaluation of this chest pain and possible stress testing. I recommended you see your physician within the next 24-48 hours to be evaluated for consideration of a stress test. Please return to emergency department immediately if you have worsening of your chest pain, shortness of breath, vomiting, become unable to exert yourself due to pain or difficulty breathing, you pass out, or have any pain that radiates into your arms, jaw, or back. Please also return if you have any additional symptoms that are concerning to you.
[2017-07-02 21:08] VITALS: BP 92/75
--- NOTE | 2017-07-02 22:53 | EKG REPORT ---
SEVERITY:- ABNORMAL ECG - SINUS TACHYCARDIA LEFT ANTERIOR FASCICULAR BLOCK : Confirmed by: Missy Raya 02-Jul-2017 22:51:30
== END 2017-07-02 20:57 | disposition home or self-care (01) ==
LOC: ER 16:17
DX: R07.9 Chest pain, unspecified (principal); R13.10 Dysphagia, unspecified; R11.10 Vomiting, unspecified; Z87.891 Personal history of nicotine dependence; T17.928A Food in respiratory tract, part unspecified causing other injury, initial encounter; X58.XXXA Exposure to other specified factors, initial encounter
CPT/HCPCS: 93005; 99285; 36415; 82553; 82550; 85025; 80053; 84484; 71010; 93010; J3490

== ENCOUNTER → 2019-08-18 | Outpatient (CLI) | payer MEDICARE, OTHER ==
--- NOTE | 2019-08-18 10:31 | RADIOLOGY REPORT (SQ) ---
EXAM DESCRIPTION: CHEST PA/LATERAL COMPLETED DATE/TIME: 08/18/2019 10:18 am REASON FOR STUDY: PRE-OP COMPARISON: 01/09/2015 EXAM PARAMETERS: NUMBER OF VIEWS: two views TECHNIQUE: Digital Frontal and Lateral radiographic views of the chest acquired. RADIATION DOSE: NA LIMITATIONS: none FINDINGS: LUNGS AND PLEURA: No opacities, masses or pneumothorax. No pleural effusion. MEDIASTINUM AND HILAR STRUCTURES: No masses or contour abnormalities. HEART AND VASCULAR STRUCTURES: Heart normal size. No evidence for failure. BONES: No acute findings. HARDWARE: None in the chest. OTHER: No other significant finding. IMPRESSION: No evidence of acute intrathoracic process. TECHNICAL DOCUMENTATION: JOB ID: [id number] [employer]- All Rights Reserved Reading location - IP/workstation name: [email or web address]
[2019-08-18 11:12] LABS: ABSOLUTE EOSINOPHILS # (AUTO) 0.2 10^3/uL (0.0-0.6); ABSOLUTE LYMPHOCYTES (AUTO) 1.1 10^3/uL (0.5-4.7); ABSOLUTE MONOCYTES (AUTO) 0.8 10^3/uL (0.1-1.4); BASOPHILS % (AUTO) 0.5 % (0-2); HEMATOCRIT 42.2 % (37.9-51.0); HEMOGLOBIN 13.7 g/dL (13.5-17.0); MEAN CORPUSCULAR HEMOGLOBIN 24.9 pg (27.0-33.4); MEAN CORPUSCULAR HGB CONC 32.6 g/dL (32.0-36.0); MEAN CORPUSCULAR VOLUME 77 fl (80-97); MONOCYTES % (AUTO) 8.4 % (3-13); PLATELET COUNT 243 10^3/uL (150-450); RED BLOOD COUNT 5.51 10^6/uL (4.35-5.55); RED CELL DISTRIBUTION WIDTH 15.2 % (11.5-14.0); SEGMENTED NEUTROPHILS % (AUTO) 77.1 % (42-78); TOTAL CELLS COUNTED % (AUTO) 100 %; WHITE BLOOD COUNT 9.1 10^3/uL (4.0-10.5)
[2019-08-18 11:15] LABS: APPEARANCE,URINE CLEAR; BILIRUBIN,URINE NEGATIVE (NEGATIVE); COLOR,URINE YELLOW; GLUCOSE, URINE NEGATIVE (NEGATIVE); KETONES,URINE NEGATIVE (NEGATIVE); LEUKOCYTE ESTERASE,URINE NEGATIVE (NEGATIVE); NITRITE,URINE NEGATIVE (NEGATIVE); PROTEIN,URINE NEGATIVE (NEGATIVE); URINE SPECIFIC GRAVITY 1.021
[2019-08-18 11:42] LABS: ANION GAP 13 (5-19); BLOOD UREA NITROGEN 20 mg/dL (7-20); CALCIUM 9.7 mg/dL (8.4-10.2); CARBON DIOXIDE 26 mmol/L (22-30); CHLORIDE 102 mmol/L (98-107); GLUCOSE 75 mg/dL (75-110); POTASSIUM 4.7 mmol/L (3.6-5.0)
--- NOTE | 2019-08-18 12:56 | EKG REPORT ---
SEVERITY:- ABNORMAL ECG - SINUS TACHYCARDIA MULTIPLE VENTRICULAR PREMATURE COMPLEXES LEFT ANTERIOR FASCICULAR BLOCK : Confirmed by: Hernandez Pearce MD 18-Aug-2019 12:56:24
== END ==
LOC: OD 09:48
PROVIDERS: ATTEND Orthopaedic Surgery
DX: Z01.810 Encounter for preprocedural cardiovascular examination (principal); Z01.811 Encounter for preprocedural respiratory examination; Z01.812 Encounter for preprocedural laboratory examination; M17.12 Unilateral primary osteoarthritis, left knee
CPT/HCPCS: 36415; 71046; 80048; 81001; 85025; 93005; 93010

== ENCOUNTER 2019-09-13 07:30 | Inpatient (IN) | payer OTHER, MEDICARE ==
[2019-09-14] MEDS ORDERED: IBUPROFEN 800 MG in NORMAL SALINE 250 ML IV PRN (11:24)
[2019-09-20] MEDS ORDERED: LACTATED RINGERS 1000 ML IV PRN (05:00)
[2019-09-20] MEDS ORDERED: VANCOMYCIN HCL 1,000 MG in DEXTROSE 5%-WATER 250 ML IV PRN (05:00)
[2019-09-20] MEDS ORDERED: PANTOPRAZOLE SODIUM 20 MG TABLET.DR PO PRN (05:00)
[2019-09-20] MEDS ORDERED: OXYCODONE HCL SR 10 MG TABLET PO PRN (05:00)
[2019-09-20] MEDS ORDERED: CEFAZOLIN INJ 1 GM VIAL IV PRN (05:00)
[2019-09-20] MEDS ORDERED: BUPIVACAINE INJ/PF LIPOSOME/PF 266 MG/20 ML SDV INJ PRN (05:00)
[2019-09-20] MEDS ORDERED: IBUPROFEN 800 MG in NORMAL SALINE 250 ML IV PRN (05:00)
[2019-09-20] MEDS ORDERED: PROPOFOL INJ 200 MG/20 ML VIAL IV ONE (06:20)
[2019-09-20] MEDS ORDERED: ONDANSETRON HCL INJ/PF 4 MG/2 ML SDV ONE (06:20)
[2019-09-20] MEDS ORDERED: DEXAMETHASONE SOD PHOSPHATE INJ 4 MG/1 ML VIAL ONE (06:20)
[2019-09-20] MEDS ORDERED: FENTANYL CITRATE INJ/PF 100 MCG/2 ML AMPUL ONE (06:20)
[2019-09-20] MEDS ORDERED: MIDAZOLAM 2 MG/2 ML INJ ONE (06:20)
[2019-09-20] MEDS ORDERED: CEFAZOLIN INJ 1 GM VIAL ONE (08:48)
[2019-09-20 09:34] LABS: APPEARANCE,URINE SLIGHTLY-CLOUDY; BILIRUBIN,URINE NEGATIVE (NEGATIVE); COLOR,URINE YELLOW; GLUCOSE, URINE NEGATIVE (NEGATIVE); KETONES,URINE NEGATIVE (NEGATIVE); LEUKOCYTE ESTERASE,URINE NEGATIVE (NEGATIVE); NITRITE,URINE NEGATIVE (NEGATIVE); PROTEIN,URINE NEGATIVE (NEGATIVE); URINE SPECIFIC GRAVITY 1.025
[2019-09-20 09:44] LABS: ABSOLUTE EOSINOPHILS # (AUTO) 0.2 10^3/uL (0.0-0.6); ABSOLUTE LYMPHOCYTES (AUTO) 0.9 10^3/uL (0.5-4.7); ABSOLUTE MONOCYTES (AUTO) 0.7 10^3/uL (0.1-1.4); ABSOLUTE NEUT (AUTO) 5.8 10^3/uL (1.7-8.2); BASOPHILS % (AUTO) 0.4 % (0-2); EOSINOPHILS % (AUTO) 2.5 % (0-6); HEMATOCRIT 39.9 % (37.9-51.0); HEMOGLOBIN 13.1 g/dL (13.5-17.0); LYMPHOCYTES % (AUTO) 11.9 % (13-45); MEAN CORPUSCULAR HEMOGLOBIN 25.4 pg (27.0-33.4); MEAN CORPUSCULAR HGB CONC 32.8 g/dL (32.0-36.0); MEAN CORPUSCULAR VOLUME 77 fl (80-97); MONOCYTES % (AUTO) 8.8 % (3-13); PLATELET COUNT 222 10^3/uL (150-450); RED BLOOD COUNT 5.16 10^6/uL (4.35-5.55); SEGMENTED NEUTROPHILS % (AUTO) 76.4 % (42-78); TOTAL CELLS COUNTED % (AUTO) 100 %; WHITE BLOOD COUNT 7.6 10^3/uL (4.0-10.5)
[2019-09-20 10:03] LABS: ANION GAP 8 (5-19); BLOOD UREA NITROGEN 21 mg/dL (7-20); CALCIUM 9.2 mg/dL (8.4-10.2); CARBON DIOXIDE 28 mmol/L (22-30); CHLORIDE 106 mmol/L (98-107); GLUCOSE 86 mg/dL (75-110); POTASSIUM 4.4 mmol/L (3.6-5.0)
[2019-09-20] MEDS ORDERED: OXYCODONE HCL SR 10 MG TABLET PO ONE (10:12)
[2019-09-20] MEDS ORDERED: PANTOPRAZOLE SODIUM 20 MG TABLET.DR PO ONE (10:12)
[2019-09-20] MEDS ORDERED: TRANEXAMIC ACID INJ/PF 1,000 MG/10 ML SDV ONE ×2 (11:55→13:47)
[2019-09-20] MEDS ORDERED: MORPHINE SULFATE 10 MG/ML INJ IV PRN (12:11)
[2019-09-20] MEDS ORDERED: FENTANYL CITRATE INJ/PF 100 MCG/2 ML AMPUL IV PRN ×3 (12:11)
[2019-09-20] MEDS ORDERED: DIPHENHYDRAMINE HCL 50 MG/ML VIAL IV PRN ×2 (12:11→12:36)
[2019-09-20] MEDS ORDERED: ONDANSETRON HCL INJ/PF 4 MG/2 ML SDV IV PRN ×2 (12:11→12:36)
[2019-09-20] MEDS ORDERED: MEPERIDINE HCL/PF INJ 25 MG/1 ML DISP.SYRIN IV PRN (12:11)
[2019-09-20] MEDS ORDERED: PROMETHAZINE HCL INJ 25 MG/1 ML VIAL IV PRN ×2 (12:11)
[2019-09-20] MEDS ORDERED: RINGERS SOLUTION,LACTATED 1,000 ML IV PRN (12:36)
[2019-09-20] MEDS ORDERED: ZOLPIDEM TARTRATE 5 MG TABLET PO PRN (12:36)
[2019-09-20] MEDS ORDERED: ONDANSETRON 4 MG TAB.RAPDIS PO PRN (12:36)
[2019-09-20] MEDS ORDERED: MAG HYDROX/AL HYDROX/SIMETH SUSP 30 ML UDCUP PO PRN (12:36)
--- NOTE | 2019-09-20 12:36 | Operative Report ---
Operative Report DATE OF SURGERY: 09/20/19 PREOPERATIVE DIAGNOSIS: Left knee arthritis OPERATION: Left knee arthroplasty SURGEON: MISTY PATTON ANESTHESIA: Spinal TISSUE REMOVED OR ALTERED: Bone to pathology ESTIMATED BLOOD LOSS: 75 PROCEDURE: Implants used: Femur: Annia triathlon size 5 CR uncemented femur Tibia: 4 uncemented tibia Tibial liner: 9 mm CS insert Patella: 35 mm oval patella Procedure with the patient supine on the operating table the left the limb is prepped and draped in a sterile fashion. The limb was elevated for exsanguination and the tourniquet inflated to 280 torr. A standard midline median parapatellar approach the knee is taken. Access is gained to the femoral canal through the intercondylar notch. Intramedullary alignment instrumentation used to resect 10 mm of distal femur in 5 of valgus. Sizing guide indicated a size 5 femur. Appropriate cutting jig is then used to fashion anterior posterior and chamfer cuts. A trial reduction femurs performed and this is judged to be adequate. Attention was next turned to the tibia. Using an extra medullary alignment system 9 millimeters was resected off the lateral tibial plateau. This is sized to a size 4 tibia. A trial reduction was now performed with a 5 femur and a 4 tibia using a 9 millimeters spacer. It is full extension and central patellofemoral tracking. The articular surface the patella was next resected using an oscillating saw. All trial implants were removed. The above implants are impacted into position the tourniquet was deflated hemostasis obtained the wound is then closed in layers using interrupted Vicryl followed by peng. A sterile compressive dressing was applied and the patient returned to recovery room in satisfactory condition.
[2019-09-20] MEDS ORDERED: TRANEXAMIC ACID INJ/PF 1,000 MG/10 ML SDV IV PRN (13:36)
--- NOTE | 2019-09-20 14:42 | RADIOLOGY REPORT (SQ) ---
EXAM DESCRIPTION: KNEE LEFT 2 VIEWS COMPLETED DATE/TIME: 09/20/2019 2:29 pm REASON FOR STUDY: Post OP -Long Cassette in PACU M17.12 UNILATERAL PRIMARY OSTEOARTHRITIS, LEFT KNE E COMPARISON: None. NUMBER OF VIEWS: Two views. TECHNIQUE: AP and lateral radiographic images acquired of the left knee. LIMITATIONS: None. FINDINGS: Postoperative images show a total knee arthroplasty in good position. IMPRESSION: Total knee arthroplasty. Refer to operative note for further information. TECHNICAL DOCUMENTATION: JOB ID: [id number] [employer]- All Rights Reserved Reading location - IP/workstation name: [email or web address]
[2019-09-20] MEDS: SENNOSIDES/DOCUSATE 8.6-50 MG 1 EACH TABLET PO SCH (18:38)
[2019-09-20] MEDS: OXYCODONE HCL IR 5 MG TABLET PO PRN (18:39)
[2019-09-20] MEDS: ASPIRIN 325 MG TABLET PO SCH ×2 (18:39→18:42)
[2019-09-20] MEDS: GABAPENTIN 300 MG CAPSULE PO SCH ×2 (18:40→18:42)
[2019-09-20] MEDS: IBUPROFEN 800 MG in NORMAL SALINE 250 ML IV SCH (18:43)
[2019-09-20] MEDS: OXYCODONE HCL SR 10 MG TABLET PO SCH (22:16)
[2019-09-21] MEDS ORDERED: VANCOMYCIN HCL 1,000 MG in DEXTROSE 5%-WATER 250 ML IV ONE (01:00)
[2019-09-21] MEDS: IBUPROFEN 800 MG in NORMAL SALINE 250 ML IV SCH ×3 (02:58→17:14)
[2019-09-21] MEDS: PANTOPRAZOLE SODIUM 40 MG TABLET.DR PO SCH (05:28)
[2019-09-21] MEDS: OXYCODONE HCL IR 5 MG TABLET PO PRN ×2 (05:28→14:46)
[2019-09-21] MEDS ORDERED: PANTOPRAZOLE SODIUM 40 MG TABLET.DR PO SCH (06:00)
[2019-09-21 06:06] LABS: HEMATOCRIT 36.5 % (37.9-51.0); HEMOGLOBIN 12.1 g/dL (13.5-17.0); MEAN CORPUSCULAR HEMOGLOBIN 25.4 pg (27.0-33.4); MEAN CORPUSCULAR HGB CONC 33.2 g/dL (32.0-36.0); MEAN CORPUSCULAR VOLUME 76 fl (80-97); PLATELET COUNT 192 10^3/uL (150-450); RED BLOOD COUNT 4.77 10^6/uL (4.35-5.55); RED CELL DISTRIBUTION WIDTH 15.4 % (11.5-14.0); WHITE BLOOD COUNT 9.9 10^3/uL (4.0-10.5)
[2019-09-21 06:25] LABS: ANION GAP 9 (5-19); BLOOD UREA NITROGEN 16 mg/dL (7-20); CARBON DIOXIDE 25 mmol/L (22-30); CHLORIDE 106 mmol/L (98-107); GLUCOSE 107 mg/dL (75-110); POTASSIUM 4.1 mmol/L (3.6-5.0)
--- NOTE | 2019-09-21 07:20 | PDOC PROGRESS REPORT ---
Subjective Progress Note for:: 09/21/19 Reason For Visit: M17.12 UNILATERAL PRIMARY OSTEOARTHRITIS, LEFT KNE 74-year-old white male now postop day 1 status post left knee arthroplasty. Prolonged anesthetic effects precluded meaningful participation in physical therapy yesterday. Physical Exam Vital Signs: Temp Pulse Resp BP Pulse Ox 36.4 C 95 18 120/86 H 96 09/21/19 00:35 09/21/19 00:35 09/21/19 00:35 09/21/19 00:35 09/21/19 00:35 Intake & Output 09/20/19 09/21/19 09/22/19 06:59 06:59 06:59 Intake Total 5884 Output Total 4304 Balance 1580 Weight 74.2 kg General appearance: PRESENT: no acute distress Head exam: PRESENT: normocephalic Respiratory exam: PRESENT: unlabored Cardiovascular exam: PRESENT: RRR Pulses: PRESENT: +1 pedal pulses bilateral Vascular exam: PRESENT: normal capillary refill GI/Abdominal exam: PRESENT: soft Rectal exam: PRESENT: deferred Musculoskeletal exam: PRESENT: other - Left knee dressing clean dry and intact. Distal capillary refill intact. Motor function to the great toe flexion extension is intact. Neurological exam: PRESENT: alert, awake, oriented to person, oriented to place, oriented to time, oriented to situation. ABSENT: motor sensory deficit Psychiatric exam: PRESENT: appropriate affect, normal mood. ABSENT: homicidal ideation, suicidal ideation Skin exam: PRESENT: dry, intact, warm. ABSENT: cyanosis, rash Results Laboratory Results: 09/21/19 05:22 09/21/19 05:22 09/20/19 09/20/19 09/20/19 09:00 09:23 09:23 WBC 7.6 RBC 5.16 Hgb 13.1 L Hct 39.9 MCV 77 L MCH 25.4 L MCHC 32.8 RDW 16.0 H Plt Count 222 Seg Neutrophils % 76.4 Sodium 142.1 Potassium 4.4 Chloride 106 Carbon Dioxide 28 Anion Gap 8 BUN 21 H Creatinine 1.17 Est GFR ( Amer) > 60 Glucose 86 Calcium 9.2 Urine Color YELLOW Urine Appearance SLIGHTLY-CLOUDY Urine pH 5.0 Ur Specific [place] 1.025 Urine Protein NEGATIVE Urine Glucose (UA) NEGATIVE Urine Ketones NEGATIVE Urine Blood NEGATIVE Urine Nitrite NEGATIVE Ur Leukocyte Esterase NEGATIVE Urine WBC (Auto) 1 Urine RBC (Auto) 1 09/21/19 09/21/19 05:22 05:22 WBC 9.9 RBC 4.77 Hgb 12.1 L Hct 36.5 L MCV 76 L MCH 25.4 L MCHC 33.2 RDW 15.4 H Plt Count 192 Seg Neutrophils % Sodium 140.1 Potassium 4.1 Chloride 106 Carbon Dioxide 25 Anion Gap 9 BUN 16 Creatinine 1.09 Est GFR ( Amer) > 60 Glucose 107 Calcium 9.0 Urine Color Urine Appearance Urine pH Ur Specific [place] Urine Protein Urine Glucose (UA) Urine Ketones Urine Blood Urine Nitrite Ur Leukocyte Esterase Urine WBC (Auto) Urine RBC (Auto) Impressions: Knee X-Ray 09/20/19 12:38 IMPRESSION: Total knee arthroplasty. Refer to operative note for further information. Status: Imported from PACS Assessment & Plan - Diagnosis (1) Arthritis of knee, left Is this a current diagnosis for this admission?: Yes Plan: Mobilized with physical therapy today on weightbearing as tolerated basis. Anticipate discharge home tomorrow with DME and home health services. - Time Time Spent with patient: 15-24 minutes Anticipated discharge: Home with Homehealth Within: within 24 hours
[2019-09-21] MEDS: SENNOSIDES/DOCUSATE 8.6-50 MG 1 EACH TABLET PO SCH ×2 (09:05→17:13)
[2019-09-21] MEDS: ACETAMINOPHEN 325 MG TABLET PO PRN (09:05)
[2019-09-21] MEDS: PRENATAL VITAMIN W DHA CAPSULE PO SCH (09:05)
[2019-09-21] MEDS: ASPIRIN 325 MG TABLET PO SCH ×3 (09:05→17:13)
[2019-09-21] MEDS: GABAPENTIN 300 MG CAPSULE PO SCH ×3 (09:06→17:13)
[2019-09-21] MEDS: OXYCODONE HCL SR 10 MG TABLET PO SCH ×2 (09:06→21:23)
[2019-09-22] MEDS: IBUPROFEN 800 MG in NORMAL SALINE 250 ML IV SCH ×2 (02:29→11:25)
[2019-09-22] MEDS: OXYCODONE HCL IR 5 MG TABLET PO PRN ×2 (02:35→08:35)
[2019-09-22] MEDS: PANTOPRAZOLE SODIUM 40 MG TABLET.DR PO SCH (05:11)
[2019-09-22 05:34] LABS: HEMATOCRIT 34.2 % (37.9-51.0); HEMOGLOBIN 11.3 g/dL (13.5-17.0); MEAN CORPUSCULAR HEMOGLOBIN 25.5 pg (27.0-33.4); MEAN CORPUSCULAR VOLUME 77 fl (80-97); PLATELET COUNT 173 10^3/uL (150-450); RED BLOOD COUNT 4.43 10^6/uL (4.35-5.55); RED CELL DISTRIBUTION WIDTH 15.9 % (11.5-14.0)
--- NOTE | 2019-09-22 07:10 | PDOC DISCHARGE SUMMARY ---
Impression - Admit/DC Date/PCP Admission Date/Primary Care Provider: 09/20/19 08:32 [facility] Discharge Date: 09/22/19 - Discharge Diagnosis (1) Arthritis of knee, left Is this a current diagnosis for this admission?: Yes - Additional Information Resuscitation Status: Full Code Discharge Diet: Regular Discharge Activity: Balance Activity w/Rest, No tub bath Referrals: MISTY PATTON MD [ACTIVE STAFF] - 09/28/19 9:45 am Home Medications: Aspirin [Aspirin 325 mg Tablet] 975 mg PO TID 07/02/17 Gabapentin 600 mg PO TID 08/30/19 History of Present Illiness History of Present Illness: EMIGDIO RICE is a 74 year old male 74-year-old white male with progressive left knee pain and functional disability second osteoarthritis pain. Patient is admitted for elective left knee arthroplasty. Hospital Course Hospital Course: Patient's admitted through the operating room where he undergoes unconjugated left knee arthroplasty. Is returned to floor in satisfactory condition. Bec ause of prolonged regional anesthesia physical therapy was not able to make significant progress with the patient on the day of surgery. The subsequent day, day 1, the patient made excellent progress and weightbearing as tolerated basis. Press of dressing was removed on postop day 2. Underlying OpSite dressings clean dry and intact. Physical Exam Vital Signs: Temp Pulse Resp BP Pulse Ox 36.8 C 99 17 116/71 98 09/21/19 15:00 09/21/19 15:00 09/21/19 15:00 09/21/19 15:00 09/21/19 15:00 Intake & Output 09/21/19 09/22/19 09/23/19 06:59 06:59 06:59 Intake Total 5884 2082 Output Total 4304 550 Balance 1580 1532 Weight 74.2 kg 74.8 kg General appearance: PRESENT: no acute distress Head exam: PRESENT: normocephalic Respiratory exam: PRESENT: unlabored Cardiovascular exam: PRESENT: RRR Pulses: PRESENT: +1 pedal pulses bilateral Vascular exam: PRESENT: normal capillary refill GI/Abdominal exam: PRESENT: soft Rectal exam: PRESENT: deferred Musculoskeletal exam: PRESENT: other - Left knee dressing clean dry and intact. Minimal pedal edema. Distal neurovascular examination is intact. Neurological exam: PRESENT: alert, awake, oriented to person, oriented to place, oriented to time, oriented to situation. ABSENT: motor sensory deficit Psychiatric exam: PRESENT: appropriate affect, normal mood. ABSENT: homicidal ideation, suicidal ideation Skin exam: PRESENT: dry, intact, warm. ABSENT: cyanosis, rash Results Laboratory Results: WBC 10.0 10^3/uL (4.0-10.5) 09/22/19 04:47 RBC 4.43 10^6/uL (4.35-5.55) 09/22/19 04:47 Hgb 11.3 g/dL (13.5-17.0) L 09/22/19 04:47 Hct 34.2 % (37.9-51.0) L 09/22/19 04:47 MCV 77 fl (80-97) L 09/22/19 04:47 MCH 25.5 pg (27.0-33.4) L 09/22/19 04:47 MCHC 33.0 g/dL (32.0-36.0) 09/22/19 04:47 RDW 15.9 % (11.5-14.0) H 09/22/19 04:47 Plt Count 173 10^3/uL (150-450) 09/22/19 04:47 Lymph % (Auto) 11.9 % (13-45) L 09/20/19 09:23 Bledsoe % (Auto) 8.8 % (3-13) 09/20/19 09:23 Eos % (Auto) 2.5 % (0-6) 09/20/19 09:23 Baso % (Auto) 0.4 % (0-2) 09/20/19 09:23 Absolute Neuts (auto) 5.8 10^3/uL (1.7-8.2) 09/20/19 09:23 Absolute Lymphs (auto) 0.9 10^3/uL (0.5-4.7) 09/20/19 09:23 Absolute Monos (auto) 0.7 10^3/uL (0.1-1.4) 09/20/19 09:23 Absolute Eos (auto) 0.2 10^3/uL (0.0-0.6) 09/20/19 09:23 Absolute Basos (auto) 0.0 10^3/uL (0.0-0.2) 09/20/19 09:23 Seg Neutrophils % 76.4 % (42-78) 09/20/19 09:23 Sodium 140.1 mmol/L (137-145) 09/21/19 05:22 Potassium 4.1 mmol/L (3.6-5.0) 09/21/19 05:22 Chloride 106 mmol/L (98-107) 09/21/19 05:22 Carbon Dioxide 25 mmol/L (22-30) 09/21/19 05:22 Anion Gap 9 (5-19) 09/21/19 05:22 BUN 16 mg/dL (7-20) 09/21/19 05:22 Creatinine 1.09 mg/dL (0.52-1.25) 09/21/19 05:22 Est GFR ( Amer) > 60 (>60) 09/21/19 05:22 Est GFR (MDRD) Non-Af > 60 (>60) 09/21/19 05:22 Glucose 107 mg/dL (75-110) 09/21/19 05:22 Calcium 9.0 mg/dL (8.4-10.2) 09/21/19 05:22 Urine Color YELLOW 09/20/19 09:00 Urine Appearance SLIGHTLY-CLOUDY 09/20/19 09:00 Urine pH 5.0 (5.0-9.0) 09/20/19 09:00 Ur Specific [place] 1.025 09/20/19 09:00 Urine Protein NEGATIVE mg/dL (NEGATIVE) 09/20/19 09:00 Urine Glucose (UA) NEGATIVE mg/dL (NEGATIVE) 09/20/19 09:00 Urine Ketones NEGATIVE mg/dL (NEGATIVE) 09/20/19 09:00 Urine Blood NEGATIVE (NEGATIVE) 09/20/19 09:00 Urine Nitrite NEGATIVE (NEGATIVE) 09/20/19 09:00 Urine Bilirubin NEGATIVE (NEGATIVE) 09/20/19 09:00 Urine Urobilinogen 2.0 mg/dL (<2.0) H 09/20/19 09:00 Ur Leukocyte Esterase NEGATIVE (NEGATIVE) 09/20/19 09:00 Urine WBC (Auto) 1 /HPF 09/20/19 09:00 Urine RBC (Auto) 1 /HPF 09/20/19 09:00 Urine Bacteria (Auto) TRACE /HPF 09/20/19 09:00 Urine Mucus (Auto) MOD /LPF 09/20/19 09:00 Urine Ascorbic Acid NEGATIVE (NEGATIVE) 09/20/19 09:00 Impressions: Knee X-Ray 09/20/19 12:38 IMPRESSION: Total knee arthroplasty. Refer to operative note for further information. Plan Plan of Treatment: Patient be discharged home with home health services and DME. Follow-up with Dr. Patton and [facility] for surgery in 2 weeks for staple removal. Stroke Is this a Stroke Patient?: No Stroke Pt being discharged on Anti-thrombolytic therapy?: Yes Acute Heart Failure - Is this a Heart Failure Patient?: No
[2019-09-22] MEDS: ACETAMINOPHEN 325 MG TABLET PO PRN (08:31)
[2019-09-22] MEDS: OXYCODONE HCL SR 10 MG TABLET PO SCH (11:23)
[2019-09-22] MEDS: ASPIRIN 325 MG TABLET PO SCH ×2 (11:24→15:34)
[2019-09-22] MEDS: GABAPENTIN 300 MG CAPSULE PO SCH ×2 (11:24→15:33)
[2019-09-22] MEDS: SENNOSIDES/DOCUSATE 8.6-50 MG 1 EACH TABLET PO SCH (11:25)
[2019-09-22] MEDS: PRENATAL VITAMIN W DHA CAPSULE PO SCH (11:25)
[2019-09-22 13:23] VITALS: BP 85/59
--- NOTE | 2019-09-22 15:53 | PSYCHOLOGICAL NOTE ---
Psych Note - Psych Note Date seen by psych provider: 09/22/19 Time seen by psych provider: 14:05 - 1440 Psych Note: Reason for Consult: Suicidal comments Patient is alert and orientated to person, place, time and circumstance. Mood is euthymic with congruent affect as evidenced by smiling and laughing with clinician. Patient denies suicidal and homicidal ideation. Admitted to making comments about ending his life is he had to live like a "potato." Delusions are absent and behaviors congruent with an intact reality based presentation ie organized and linear thought process. Eye contact is well-maintained. Conversational speech is within normal rate, tone and prosody. Intellectual abilities appear to be within the average range. Attention and concentration are good. Insight, judgment, impulse control are fair. Diagnosis: deferred Medication recommendations per [facility]'s contracted psychiatrist Dr. Elizabeth JOHNSON are as follows no medications at this time Impression/plan: Patient is cleared from acute psychiatric services. He does not meet IVC criteria per [place] GS 122C. Dr. Emanuel was consulted on the care and management of this patient.
== END 2019-09-22 16:18 | disposition home health service (06) | DRG 470 ==
LOC: INOR 09-20 08:32 → 4S 09-20 14:03
PROVIDERS: ADMIT Orthopaedic Surgery; ATTEND Orthopaedic Surgery
PROC: 0SRD0JA Replacement of Left Knee Joint with Synthetic Substitute, Uncemented, Open Approach (ICD-10-PCS; principal; 2019-09-20 11:15)
DX: M17.12 Unilateral primary osteoarthritis, left knee (principal); K50.90 Crohn's disease, unspecified, without complications; F17.200 Nicotine dependence, unspecified, uncomplicated; Z79.82 Long term (current) use of aspirin; Z79.899 Other long term (current) drug therapy; Z88.7 Allergy status to serum and vaccine
CPT/HCPCS: 01402; 36415; 80048; 81001; 85025; 85027; 88305; 88311; 94799; C1713; C1776; J0690; J1100; J1741; J2250; J2405; J2704; J3010; J3370; J3490; J7050; J7060

== ENCOUNTER → 2019-12-23 | Outpatient (CLI) | payer OTHER, MEDICARE ==
[2019-12-23 09:28] LABS: ABSOLUTE EOSINOPHILS # (AUTO) 0.3 10^3/uL (0.0-0.6); ABSOLUTE LYMPHOCYTES (AUTO) 0.9 10^3/uL (0.5-4.7); ABSOLUTE MONOCYTES (AUTO) 0.7 10^3/uL (0.1-1.4); ABSOLUTE NEUT (AUTO) 5.6 10^3/uL (1.7-8.2); BASOPHILS % (AUTO) 0.3 % (0-2); EOSINOPHILS % (AUTO) 3.4 % (0-6); HEMATOCRIT 38.4 % (37.9-51.0); HEMOGLOBIN 12.9 g/dL (13.5-17.0); LYMPHOCYTES % (AUTO) 12.2 % (13-45); MEAN CORPUSCULAR HEMOGLOBIN 25.6 pg (27.0-33.4); MEAN CORPUSCULAR HGB CONC 33.6 g/dL (32.0-36.0); MEAN CORPUSCULAR VOLUME 76 fl (80-97); MONOCYTES % (AUTO) 9.7 % (3-13); PLATELET COUNT 256 10^3/uL (150-450); RED BLOOD COUNT 5.04 10^6/uL (4.35-5.55); RED CELL DISTRIBUTION WIDTH 16.3 % (11.5-14.0); SEGMENTED NEUTROPHILS % (AUTO) 74.4 % (42-78); TOTAL CELLS COUNTED % (AUTO) 100 %; WHITE BLOOD COUNT 7.5 10^3/uL (4.0-10.5)
[2019-12-23 10:08] LABS: ERYTHROCYTE SEDIMENTATION RATE 23 mm/hr (0-20)
== END ==
LOC: OD 08:36
PROVIDERS: ATTEND Orthopaedic Surgery
DX: T84.54XA Infection and inflammatory reaction due to internal left knee prosthesis, initial encounter (principal)
CPT/HCPCS: 36415; 85025; 85652; 86140

== ENCOUNTER 2020-03-16 09:38 | Emergency (ER) | payer OTHER, MEDICARE ==
[2020-03-16] MEDS ORDERED: ONDANSETRON 4 MG TAB.RAPDIS PO ONE (10:22)
--- NOTE | 2020-03-16 10:24 | ER Document Report ---
ED Medical Screen (RME) - General Chief Complaint: Abdominal Pain Stated Complaint: ABDOMINAL PAIN Time Seen by Provider: 03/16/20 10:16 Primary Care Provider: MISTY PATTON MD [Primary Care Provider] - Follow up as needed Mode of Arrival: Ambulatory Information source: Patient Notes: 74-year-old male presented to ED for complaint of abdominal pain x2 and half days. He states his last bowel movement was very hard this morning with no blood around it. He is alert oriented respirations regular nonlabored speaking in full sentences. He did does smoke 8 to 10 cigarettes a day does not drink or use any drugs. He does have a past medical history of Crohn's, stroke, inguinal hernia surgeries cataract surgeries left knee replacement last year multiple broken bones. Patient is alert oriented respirations regular and unlabored speaking in full sentences. I have greeted and performed a rapid initial assessment of this patient. A comprehensive ED assessment and evaluation of the patient, analysis of test results and completion of medical decision making process will be conducted by an additional ED providers. TRAVEL OUTSIDE OF THE [place] IN LAST 30 DAYS: No - Related Data Allergies/Adverse Reactions: typhoid vaccine Allergy (Verified 09/20/19 10:20) Past Medical History - Past Medical History Cardiac Medical History: Reports: Hx Hypertension Denies: Hx Congestive Heart Failure, Hx Coronary Artery Disease, Hx Heart Attack Pulmonary Medical History: Denies: Hx Asthma, Hx Bronchitis, Hx COPD, Hx Sleep Apnea Neurological Medical History: Reports: Hx Cerebrovascular Accident - 2015 right hand tingling. Denies: Hx Seizures, Hx Parkinson's Disease Endocrine Medical History: Denies: Hx Hyperthyroidism, Hx Hypothyroidism Renal/ Medical History: Reports: Hx Kidney Stones. Denies: Hx Benign Prostatic Hyperplasia, Hx End Stage Renal Disease, Hx Peritoneal Dialysis GI Medical History: Reports: Hx Crohn's Disease. Denies: Hx Gastroesophageal Reflux Disease, Hx Hiatal Hernia, Hx Irritable Bowel, Hx Liver Failure, Hx Pancreatitis, Hx Ulcer Musculoskeltal Medical History: Reports Hx Arthritis, Denies Hx Fibromyalgia, Denies Hx Multiple Sclerosis, Denies Hx Muscular Dystrophy Psychiatric Medical History: Denies: Hx Bipolar Disorder, Hx Dementia, Hx Depression, Hx Post Traumatic Stress Disorder Traumatic Medical History: Reports: Hx Fractures Past Surgical History: Reports: Hx Bowel Surgery - Perf. Bowel, Hx Herniorrhaphy - x3. Denies: Hx Appendectomy, Hx Cholecystectomy, Hx Colostomy, Hx Coronary Artery Bypass Graft, Hx Gastric Bypass Surgery, Hx Pacemaker, Hx Tonsillectomy - Immunizations Hx Diphtheria, Pertussis, Tetanus Vaccination: Yes Physical Exam - Vital signs Vitals: Temp Pulse Resp BP Pulse Ox 98.1 F 107 H 18 116/85 97 03/16/20 09:45 03/16/20 09:45 03/16/20 09:45 03/16/20 09:45 03/16/20 09:45 Course - Vital Signs Vital signs: Temp Pulse Resp BP Pulse Ox 98.1 F 107 H 18 116/85 97 03/16/20 09:45 03/16/20 09:45 03/16/20 09:45 03/16/20 09:45 03/16/20 09:45 Doctor's Discharge - Discharge Referrals: MISTY PATTON MD [Primary Care Provider] - Follow up as needed
[2020-03-16 10:47] LABS: APPEARANCE,URINE SLIGHTLY-CLOUDY; BILIRUBIN,URINE NEGATIVE (NEGATIVE); COLOR,URINE YELLOW; GLUCOSE, URINE NEGATIVE (NEGATIVE); KETONES,URINE TRACE mg/dL (NEGATIVE); LEUKOCYTE ESTERASE,URINE NEGATIVE (NEGATIVE); NITRITE,URINE NEGATIVE (NEGATIVE); PROTEIN,URINE NEGATIVE (NEGATIVE); URINE SPECIFIC GRAVITY 1.023; UROBILINOGEN,URINE NEGATIVE mg/dL (<2.0)
[2020-03-16 10:54] LABS: ABSOLUTE EOSINOPHILS # (AUTO) 0.1 10^3/uL (0.0-0.6); ABSOLUTE LYMPHOCYTES (AUTO) 0.6 10^3/uL (0.5-4.7); ABSOLUTE MONOCYTES (AUTO) 0.8 10^3/uL (0.1-1.4); ABSOLUTE NEUT (AUTO) 7.4 10^3/uL (1.7-8.2); BASOPHILS % (AUTO) 0.4 % (0-2); EOSINOPHILS % (AUTO) 0.6 % (0-6); HEMATOCRIT 44.6 % (37.9-51.0); HEMOGLOBIN 14.9 g/dL (13.5-17.0); LYMPHOCYTES % (AUTO) 6.5 % (13-45); MEAN CORPUSCULAR HEMOGLOBIN 25.2 pg (27.0-33.4); MEAN CORPUSCULAR HGB CONC 33.5 g/dL (32.0-36.0); MEAN CORPUSCULAR VOLUME 75 fl (80-97); PLATELET COUNT 293 10^3/uL (150-450); RED BLOOD COUNT 5.94 10^6/uL (4.35-5.55); RED CELL DISTRIBUTION WIDTH 16.4 % (11.5-14.0); SEGMENTED NEUTROPHILS % (AUTO) 83.5 % (42-78); TOTAL CELLS COUNTED % (AUTO) 100 %; WHITE BLOOD COUNT 8.9 10^3/uL (4.0-10.5)
[2020-03-16 11:10] LABS: ALBUMIN 4.6 g/dL (3.5-5.0); ALKALINE PHOSPHATASE 108 U/L (38-126); ANION GAP 12 (5-19); ASPARTATE AMINO TRANSFERASE 27 U/L (17-59); BILIRUBIN,TOTAL 0.7 mg/dL (0.2-1.3); BLOOD UREA NITROGEN 22 mg/dL (7-20); CALCIUM 9.9 mg/dL (8.4-10.2); CARBON DIOXIDE 24 mmol/L (22-30); CHLORIDE 100 mmol/L (98-107); GLUCOSE 104 mg/dL (75-110); POTASSIUM 4.7 mmol/L (3.6-5.0)
--- NOTE | 2020-03-16 11:57 | RADIOLOGY REPORT (SQ) ---
EXAM DESCRIPTION: ACUTE ABDOMEN SERIES IMAGES COMPLETED DATE/TIME: 03/16/2020 11:11 am REASON FOR STUDY: Abdominal pain hard bowel movements history Crohn' COMPARISON: None. NUMBER OF VIEWS: Three views. TECHNIQUE: Frontal chest, supine abdomen and upright/decubitus abdomen radiographic images acquired. LIMITATIONS: None. FINDINGS: CHEST: Lungs clear of infiltrates. FREE AIR: None. No abnormal gas collections. BOWEL GAS PATTERN: Mild small bowel dilation with a few air-fluid levels. Large hiatal hernia. CALCIFICATIONS: No suspicious calcifications. HARDWARE: Clips in the left pelvis. SOFT TISSUES: No gross mass or suggestion of organomegaly. BONES: No acute fracture. No worrisome bone lesions. OTHER: No other significant finding. IMPRESSION: 1. MILD SMALL BOWEL DILATION WITH A FEW AIR-FLUID LEVELS, NONSPECIFIC. COULD BE DUE TO ILEUS. EARLY MECHANICAL OBSTRUCTION CANNOT BE EXCLUDED. 2. LARGE HIATAL HERNIA. TECHNICAL DOCUMENTATION: JOB ID: [id number] 2010 [employer]- All Rights Reserved Reading location - IP/workstation name: [email or web address]
[2020-03-16] MEDS ORDERED: MORPHINE SULFATE 10 MG/ML INJ IV ONE (11:59)
[2020-03-16] MEDS ORDERED: ONDANSETRON HCL INJ/PF 4 MG/2 ML SDV IV ONE (11:59)
[2020-03-16] MEDS ORDERED: NORMAL SALINE 1000 ML 1,000 ML IV ONE (12:03)
[2020-03-16] MEDS ORDERED: LIDOCAINE 2% VISCOUS SOLN 15 ML UDCUP PO ONE (12:56)
[2020-03-16] MEDS ORDERED: IPRATROPIUM/ALBUTEROL 0.5-2.5 MG/3 ML AMPUL NEB ONE (13:14)
--- NOTE | 2020-03-16 14:33 | RADIOLOGY REPORT (SQ) ---
EXAM DESCRIPTION: CHEST SINGLE VIEW IMAGES COMPLETED DATE/TIME: 03/16/2020 2:21 pm REASON FOR STUDY: post ng COMPARISON: Chest films 08/18/2019, 01/09/2015 EXAM PARAMETERS: NUMBER OF VIEWS: One view. TECHNIQUE: Single frontal radiographic view of the chest acquired. RADIATION DOSE: NA LIMITATIONS: Lung apices partially cropped from the field of view. FINDINGS: Nasogastric tube tip and side port are coiled within a large retrocardiac hiatal hernia. LUNGS AND PLEURA: Right medial basilar airspace disease atelectasis versus pneumonia. Remainder of the lungs are grossly clear. No pleural effusion. No gross pneumothorax. MEDIASTINUM AND HILAR STRUCTURES: No masses. Contour normal. HEART AND VASCULAR STRUCTURES: Heart normal in size. Normal vasculature. BONES: No acute findings. HARDWARE: Nasogastric tube tip and side-port coiled in a retrocardiac hiatal hernia. Dilated small b owel loops under the hemidiaphragms OTHER: No other significant finding. IMPRESSION: Nasogastric tube tip and side-port coiled in the retrocardiac hiatal hernia. Medial basilar airspace disease on the right, question basilar pneumonia TECHNICAL DOCUMENTATION: JOB ID: [id number] 2010 [employer]- All Rights Reserved Reading location - IP/workstation name: [email or web address]
--- NOTE | 2020-03-16 17:58 | RADIOLOGY REPORT (SQ) ---
EXAM DESCRIPTION: CT ABD/PELVIS WITH IV ORAL IMAGES COMPLETED DATE/TIME: 03/16/2020 4:25 pm REASON FOR STUDY: abd pain/n/v/prior colon resection;crohns dis COMPARISON: 06/02/2017 TECHNIQUE: CT scan of the abdomen and pelvis performed using helical scanning technique with dynamic intravenous contrast injection. No oral contrast. Images reviewed with lung, soft tissue, and bone windows. Reconstructed coronal and sagittal MPR images reviewed. Delayed images for evaluation of the urinary system also acquired. All images stored on PACS. All CT scanners at this facility use dose modulation, iterative reconstruction, and/or weight based d osing when appropriate to reduce radiation dose to as low as reasonably achievable (ALARA). [facility]: Dose Right [facility]: CareDose [facility]: Dose Right [facility]: Teradose 4D [facility]: [employer] CONTRAST TYPE AND DOSE: contrast/concentration: Isovue 350.00 mg/ml; Total Contrast Delivered: 83.0 ml; Total Saline Delivered: 63.9 ml RENAL FUNCTION: GFR > 60. RADIATION DOSE: CT Rad equipment meets quality standard of care and radiation dose reduction techniq ues were employed. CTDIvol: 7.6 - 10.7 mGy. DLP: 1001 mGy-cm.. LIMITATIONS: None. FINDINGS: LOWER CHEST: There is atelectasis or ground-glass attenuation at the right lung base. Neena ear atelectasis at the left lung base. Moderate hiatal hernia. No pleural effusion. LIVER: Normal size. No masses. No dilated ducts. SPLEEN: Normal size. No focal lesions. PANCREAS: No masses. No significant calcifications. No adjacent inflammation or peripancreatic fluid collections. Pancreatic duct not dilated. GALLBLADDER: No identified stones by CT criteria. No inflammatory changes to suggest cholecystitis. ADRENAL GLANDS: No significant masses or asymmetry. RIGHT KIDNEY AND URETER: Exophytic right renal cortical cysts. No solid renal mass. No significant calcifications. No hydronephrosis or hydroureter. LEFT KIDNEY AND URETER: Small left renal cortical cysts. No solid renal mass. 3 mm nonobstructing left inferior pole renal calculus. No obstructing renal or ureteral calculus. No hydronephrosis or hydroureter. AORTA AND VESSELS: No aneurysm. No dissection. Renal arteries, SMA, celiac without stenosis. RETROPERITONEUM: No retroperitoneal adenopathy, hemorrhage or masses. BOWEL AND PERITONEAL CAVITY: There is an ileocecal anastomosis which appears patent. Moderate hiatal hernia. No dilated loops of bowel. Extensive colonic diverticulosis without evidence of diverticul itis. No significant inflammatory change. Small amount of ascites in the pelvis. No pneumoperitone um. APPENDIX: Surgically absent. PELVIS: Small amount of fluid in the pelvis. Urinary bladder and prostate gland have normal size. ABDOMINAL WALL: No masses. No hernias. BONES: No significant or acute findings. OTHER: No other significant finding. IMPRESSION: 1. Small amount of free fluid in the pelvis, which can be seen with an infectious or inflammatory pro cess. Ileocecal anastomosis appears patent. There is no bowel obstruction. 2. Extensive colonic diverticulosis without evidence of diverticulitis. 3. Moderate hiatal hernia. 4. Ground-glass attenuation in the peripheral right lung base may represent infectious/inflammatory p rocess or atelectasis. Clinical correlation is recommended. TECHNICAL DOCUMENTATION: JOB ID: [id number] Quality ID # [id number]: Final reports with documentation of one or more dose reduction techniques (e.g., Au tomated exposure control, adjustment of the mA and/or kV according to patient size, use of iterative reconstruction technique) 2010 [employer]- All Rights Reserved Reading location - IP/workstation name: [id number]
--- NOTE | 2020-03-16 19:23 | ER Document Report ---
Entered by RC RODRIGUEZ SCRIBE 03/16/20 1117 Acting as scribe for:ONEYDA PRUETT MD ED GI/ - General Chief Complaint: Abdominal Pain Stated Complaint: ABDOMINAL PAIN Time Seen by Provider: 03/16/20 10:16 Primary Care Provider: MISTY PATTON MD [ACTIVE STAFF] - Follow up as needed Mode of Arrival: Ambulatory Information source: Patient Notes: This 74 year old male patient presents to the emergency department today with complaints of constant diarrhea three days ago. Patient states that the diarrhea only lasted for a day. Patient states 2 days ago he "hurt but still went to physical therapy". Patient states yesterday he did not get out of bed due to abdominal pain. Patient states his last bowel movement was last night and his last meal was yesterday. Patient states he has not passed gas since his bowel movement last night. Patient states his abdominal pain comes and goes and he vomited once this morning. Patient denies any blood in his emesis or stool. Patient denies any recent antibiotic usage. TRAVEL OUTSIDE OF THE [place] IN LAST 30 DAYS: No - Related Data Allergies/Adverse Reactions: typhoid vaccine Allergy (Verified 09/20/19 10:20) Past Medical History - General Information source: Patient - Social History Smoking Status: Current Every Day Smoker Frequency of alcohol use: None Drug Abuse: None Family History: Reviewed & Not Pertinent, Other - Father, Grand father- Cerebral Aneurysm Patient has homicidal ideation: No - Past Medical History Cardiac Medical History: Reports: Hx Hypertension Denies: Hx Congestive Heart Failure, Hx Coronary Artery Disease, Hx Heart Attack Pulmonary Medical History: Denies: Hx Asthma, Hx Bronchitis, Hx COPD, Hx Sleep Apnea Neurological Medical History: Reports: Hx Cerebrovascular Accident - 2015 right hand tingling. Denies: Hx Seizures, Hx Parkinson's Disease Endocrine Medical History: Denies: Hx Hyperthyroidism, Hx Hypothyroidism Renal/ Medical History: Reports: Hx Kidney Stones. Denies: Hx Benign Prostatic Hyperplasia, Hx End Stage Renal Disease, Hx Peritoneal Dialysis GI Medical History: Reports: Hx Crohn's Disease. Denies: Hx Gastroesophageal Reflux Disease, Hx Hiatal Hernia, Hx Irritable Bowel, Hx Liver Failure, Hx Pancreatitis, Hx Ulcer Musculoskeletal Medical History: Reports Hx Arthritis, Denies Hx Fibromyalgia, Denies Hx Multiple Sclerosis, Denies Hx Muscular Dystrophy Psychiatric Medical History: Denies: Hx Bipolar Disorder, Hx Dementia, Hx Depression, Hx Post Traumatic Stress Disorder Traumatic Medical History: Reports: Hx Fractures Past Surgical History: Reports: Hx Bowel Surgery - Perf. Bowel, Hx Herniorrhaphy - x3. Denies: Hx Appendectomy, Hx Cholecystectomy, Hx Colostomy, Hx Coronary A rtery Bypass Graft, Hx Gastric Bypass Surgery, Hx Pacemaker, Hx Tonsillectomy - Immunizations Hx Diphtheria, Pertussis, Tetanus Vaccination: Yes Hx Pneumococcal Vaccination: 07/20/19 Physical Exam - Vital signs Vitals: Temp Pulse Resp BP Pulse Ox 98.1 F 107 H 18 116/85 97 03/16/20 09:45 03/16/20 09:45 03/16/20 09:45 03/16/20 09:45 03/16/20 09:45 - Notes Notes: Physical Exam: General: Alert, appears well. HEENT: Normocephalic. Atraumatic. PERRL. Extraocular movements intact. Oropharynx clear. Neck: Supple. Non-tender. Respiratory: No respiratory distress. Clear and equal breath sounds bilaterally. Cardiovascular: Regular rate and rhythm. Abdominal: Mid-epigastric tenderness with palpation. No distension. Normal Bowel Sounds. Back: No gross abnormalities. Extremities: Moves all four extremities. Upper extremities: Normal inspection. Normal ROM. Lower extremities: Normal inspection. No edema. Normal ROM. Neurological: Normal cognition. AAOx4. Normal speech. Psychological: Normal affect. Normal Mood. Skin: Warm. Dry. Normal color. Course - Re-evaluation Re-evalutation: 03/16/20 19:14 Patient ambulatory in the department not showing any signs of distress at this time. Patient reports his abdominal pain has improved. Although not completely gone at this time. 03/16/20 19:19 Patient does not show any signs of infection or shortness of breath or cough therefore his groundglass appearance in the right base does not appear to be an active bacterial infection. - Vital Signs Vital signs: Temp Pulse Resp BP Pulse Ox 98.1 F 107 H 18 116/85 97 03/16/20 10:17 03/16/20 09:45 03/16/20 09:45 03/16/20 09:45 03/16/20 09:45 03/16/20 19:14 Vital signs are stable. Patient has a slight tachycardia heart rate 107. - Laboratory Result Diagrams: 03/16/20 10:25 03/16/20 10:25 Laboratory results interpreted by me: 03/16/20 03/16/20 03/16/20 10:25 10:25 10:25 RBC 5.94 H MCV 75 L MCH 25.2 L RDW 16.4 H Lymph % (Auto) 6.5 L Seg Neutrophils % 83.5 H Sodium 136.2 L BUN 22 H Urine Ketones TRACE H - Diagnostic Test Radiology reviewed: Image reviewed, Reports reviewed Radiology results interpreted by me: 03/16/20 19:15 CT scan of abdomen and pelvis shows no acute surgical process. No obstruction noted patient has diverticulosis without diverticulitis present. Small amount of pelvic fluid noted. Also noted was questionable groundglass appearance in the right base questionable pneumonitis. 03/16/20 19:18 03/16/20 19:18 Chest x-ray shows NG tube coiled up in the hiatal hernia below the diaphragm in the stomach. Again questionable ground groundglass pneumonitis scarring in the right base. 03/16/20 19:19 Abdominal series plain film shows no obstruction occasional air-fluid levels noted in small bowel without complete obstruction questionable ileus versus small bowel obstruction. Also again noted some groundglass appearance in the right base. Discharge - Discharge Clinical Impression: Abdominal pain, Dynamic ileus, Crohn's disease Condition: Stable Disposition: HOME, SELF-CARE Instructions: Antispasmodics ([facility]), Antinausea Medication ([facility]) Additional Instructions: Abdominal Pain There are many causes of abdominal pain. Pain can mean a serious problem requiring surgery (such as appendicitis). It can also be an innocent problem that goes away on its own (such as a viral infection). Often, time must pass to determine the cause of pain. The physician does not feel that hospitalization is necessary, at present. Things may change within the next 24 hours. Call the doctor or come back for re- examination if any problems occur, such as: (1) Pain that becomes more severe, steady, or becomes concentrated in one specific area. Also, pain that is more severe with movement or coughing. (2) Vomiting that persists or becomes more frequent. (3) Blood in the vomitus, urine, or bowel movements. Blood in the stool may have a tarry or black appearance. (4) Shaking chills or fever greater than 100 degrees F. (5) The abdomen becomes more distended or swollen. (6) Bowel movements cease. (7) Failure to improve as expected. You I have no obstruction noted on CT scan of abdomen pelvis. Your pain has improved with treatment while in emergency department. You are being discharged home on an antispasmodic medication and medications for nausea and vomiting. Please follow-up with your primary care physician. Prescriptions: Dicyclomine HCl [Bentyl 20 mg Tablet] 20 mg PO QID PRN 5 Days #20 tablet PRN Reason: Abdominal Cramping Ondansetron [Zofran Odt 4 mg Tablet] 1 - 2 tab PO Q4H PRN #15 tab.rapdis PRN Reason: For Nausea/Vomiting Referrals: MISTY PATTON MD [ACTIVE STAFF] - Follow up as needed I personally performed the services described in the documentation, reviewed and edited the documentation which was dictated to the scribe in my presence, and it accurately records my words and actions.
[2020-03-16 20:00] VITALS: BP 108/81
== END 2020-03-16 20:01 | disposition home or self-care (01) ==
LOC: ER 09:38
DX: K56.0 Paralytic ileus (principal); K50.90 Crohn's disease, unspecified, without complications; R10.9 Unspecified abdominal pain; R19.7 Diarrhea, unspecified; F17.210 Nicotine dependence, cigarettes, uncomplicated; I10 Essential (primary) hypertension; Z96.652 Presence of left artificial knee joint; Z86.73 Personal history of transient ischemic attack (TIA), and cerebral infarction without residual deficits
CPT/HCPCS: 99284; 96361; 96374; 96375; 36415; 83690; 85025; 80053; 81001; 74022; 71045; 74177; S0119; J3490; J2270; J2405; J7030